=== PATIENT | female | born 2000 | race Caucasian/White ===

== ENCOUNTER 2020-01-26 08:08 | Emergency (ER) | payer OTHER, SELFPAY ==
--- NOTE | ~2020-01-26 | XR_ITS ---
EXAMINATION: XR elbow LT min 3V DATE: 01/26/2020 08:40 INDICATION: Left elbow pain TECHNIQUE: Anteroposterior, oblique, and lateral views of the left elbow were obtained. COMPARISON: None. FINDINGS: Alignment is normal. No fracture or joint effusion. Joint spaces are normal. There is anter ior soft tissue swelling of the elbow. IMPRESSION: 1. Soft tissue swelling without acute osseous abnormality. Reviewed, dictated and finalized at location A.
[2020-01-26 08:29] VITALS: BP 106/79; PULSE 71; RESP 16; TEMP 37.2; O2SAT 100
--- NOTE | 2020-01-26 08:36 | ED.UPPEXIN ---
HPI - Extremity Injury (Upper) General Chief Complaint: Extremity Injury, Upper Stated Complaint: Left arm fracture Time Seen by Provider: 01/26/20 08:36 Source: patient Mode of arrival: ambulatory Limitations: no limitations History of Present Illness HPI narrative: Katrin Erickson is a 19 yo female with no PMH who comes to express care with left elbow pain. Patient drove in the department last night but cannot remember the specifics of how she injured her left elbow. L Elbow swollen. 2/10 with no movement, 10/10 with movement. Related Data Home Medications Medication Instructions Recorded Confirmed norgestimate-ethinyl estradiol tablet 01/26/20 [Estarylla] Allergies Allergy/AdvReac Type Severity Reaction Status Date / Time No Known Allergies Allergy Unknown Unverified 05/10/19 19:27 No Known Allergies Allergy Uncoded 05/10/19 19:27 Review of Systems Review of Systems: Narrative: CONSTITUTIONAL: Denies fever, chills, sweats. EYES: Denies visual changes, redness, discharge. ENT: Denies rhinorrhea, congestion, sore throat, otalgia. CARDIOVASCULAR: Denies chest pain, palpitations, edema. RESPIRATORY: Denies dyspnea, wheezing, cough GASTROINTESTINAL: Denies abdominal pain, nausea, vomiting, diarrhea. GENITOURINARY: Denies dysuria, hematuria, abnormal discharge SKIN: Denies rash or itching. NEUROLOGIC: Denies numbness, or focal weakness. PSYCHIATRIC: Denies anxiety or depression. Extremities: Larm pain with pain with movement PMFSH Family History Family History Other No acute medical problems Social History Social History Smoking status: Never smoker Alcohol intake: never Comments At time of signature, I agree with nursing past medical, surgical, social and family history. There is no relevant family history pertinent to the presenting complaint. Exam Narrative: Exam Narrative: GENERAL: This is a well-nourished, well-developed patient, in moderate distress. HEAD: normocephalic, atraumatic. EYES: Sclera clear/white. Vision is grossly intact. EARS: External ears normal. Hearing grossly intact. NOSE: External nose normal without nasal discharge, nares without redness, no rhinorrhea. THROAT: Mucous membranes moist, NECK: Neck supple, CARDIOVASCULAR: Regular rate and rhythm without murmurs, gallops, or rubs. RESPIRATORY: Clear to auscultation. Breath sounds equal bilaterally. No wheezes, rales, or rhonchi. GASTROINTESTINAL: Abdomen soft, SKIN: warm, intact with no suspicious lesions or rash, good texture and turgor. NEURO: awake, alert, and oriented to person, place and time. There were no obvious focal neurologic abnormalities. Steady gait EXTREMITIES: Unable to extend left arm, no swelling distal olecranon, grasp left hand 3 out of 5, skin pink warm, no obvious abrasion BACK: Nontender without deformity Course Course Emergency Course: Given Toradol IM for pain Placed in sling/ directions on movement and use of ice [place] at discharge-if pain does not improve recommend CT follow-up for occult fracture, orthopedic referral given Consultations Consultation #1: Orthopedics-Dr Lemos Vital Signs Vital signs: Vital Signs Temperature 98.9 F 01/26/20 08:29 Pulse Rate 71 01/26/20 08:29 Respiratory Rate 16 01/26/20 08:29 Blood Pressure 106/79 01/26/20 08:29 Pulse Oximetry 100 01/26/20 08:29 Temperature 98.9 F 01/26/20 08:29 Pulse Rate 71 01/26/20 08:29 Respiratory Rate 16 01/26/20 08:29 Blood Pressure 106/79 01/26/20 08:29 Pulse Oximetry 100 01/26/20 08:29 MDM - Extremity Injury (Upper) Imaging Data Radiologist's impression: Soft tissue swelling without acute osseous abnormality Discharge Plan Discharge Clinical Impression: Elbow effusion Qualifiers: Laterality: left Qualified Code(s): M25.422 - Effusion, left elbow Patient Disposition:
[2020-01-26] MEDS: KETOROLAC (*BKC) 60 MG/2 ML VIAL IM (08:48)
== END 2020-01-26 09:19 | disposition home or self-care (01) ==
PROVIDERS: Emergency Provider Nurse Practitioner
DX: M25.422 Effusion, left elbow (principal)
CPT/HCPCS: 73080; 96372; 99213; A4565; G0463; J1885

== ENCOUNTER 2020-05-26 08:00 | Outpatient (RCR) | payer OTHER, SELFPAY ==
--- NOTE | 2020-03-05 11:26 | OTOPEVAL ---
OCCUPATIONAL THERAPY INITIAL EVALUATION 03/05/2020 Thank you for referring Katrin Erickson to [facility]. OT indicated 2x/week for 3 weeks for deficits described below. Please review, sign, date and return this plan of care RORY. I agree with and certify that the following plan of care is medically necessary. Referring Physician Date Referring Provider: Dr. Binh Donato *OT Outpatient Evaluation Therapy Assessment Status Assessment Status Assessment Status Evaluation Outpatient Past Medical History Musculoskeletal History Hx Fractures Yes: R wrist, L leg, toes and fingers Evaluation Information Problem Diagnosis Left radial head and capitellum fracture Onset Mid January 2020 (~5 weeks ago) Cause Diving in shallow water Subjective Information Patient reports sustaining the Query Text:As Reported By Patient/ left elbow injury after Family diving into a shallow pool. She went to the ER for evaluation the next day. 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 Functionally she was having difficulties touching/washing her face and doing her hair, but has recently been able to do this for herself. She is limited when it comes to any lifting, however. Pain Assessment Timing of Pain Assessment Timing of Pain Assessment Assessment Pain Scale Pain Scale Used Numeric (1 - 10) Self Report Pain Assessment Left Elbow(s) Reported Pain Level 0 Lowest Pain Intensity 0 Greatest Pain Intensity 4 Pain Score Pain Score 0: Self Report Upper Extremity Range of Motion Scapular/ Shoulder Range of Motion Left Reason Not Measured WNL/Left Elbow/Forearm Range of Motion Left Elbow Flexion - Active 95 Elbow Flexion - Passive 105 Elbow Extension - Active -60 Elbow Extension - Passive -40 Forearm Supination - Active 30 Forearm Supination - Passive 45 Forearm Pronation - Active 55 Forearm Pronation - Passive 70 Elbow/Forearm Range of Motion
--- NOTE | 2020-03-25 11:22 | PCOTNOTE ---
Patient missed appointment today - showed up at 11 instead of 10. Rescheduled for tomorrow.
--- NOTE | 2020-03-27 10:35 | OTOPEVAL ---
OCCUPATIONAL THERAPY RE-EVALUATION 03/27/2020 Thank you for referring Katrin Erickson to [facility].? The patient is scheduled to be seen for therapy? 2x/week for 4weeks. Please review, sign, date and return this plan of care RORY. I agree with and certify that the following plan of care is medically necessary. Referring Physician Date Referring Provider: Dr. Binh Donato *OT Outpatient Re-Evaluation Evaluation Information Problem Diagnosis Left radial head and capitellum fracture Onset Mid January 2020 Cause Diving in shallow water Additional Evaluation Detail Katrin has been participating in outpatient OT x3 weeks for left elbow stiffness. Therapy has been using heat, manual therapy, AROM/AAROM, and gentle PROM. She is currently independent with all of her exercises. Subjective Information Patient reports improved Query Text:As Reported By Patient/ functional use of her left UE Family since starting therapy. She states she is now able to use her left arm to wash her hair, don/doff a bra, tie shoes, swim, touch her face. Limitations include being able to turn her hand palm up to carry objects. Pain Assessment Timing of Pain Assessment Timing of Pain Assessment Re-assessment Pain Scale Pain Scale Used Numeric (1 - 10) Self Report Pain Assessment Left Elbow(s) Reported Pain Level 0 Lowest Pain Intensity 0 Greatest Pain Intensity 0 Pain Score Pain Score 0: Self Report Upper Extremity Range of Motion Scapular/ Shoulder Range of Motion Left Reason Not Measured WNL/Left Elbow/Forearm Range of Motion Left Elbow Flexion - Active 120 Elbow Flexion - Passive 125 Elbow Extension - Active -40 Elbow Extension - Passive -38 Forearm Supination - Active 60 Forearm Supination - Passive 65 Forearm Pronation - Active 60 Forearm Pronation - Passive 70 Elbow/Forearm Range of Motion Comments Active elbow flexion improved from 95* Passive elbow flexion improved from 105* Active elbow extension improved from -60* Passive elbow extension improved -40*
--- NOTE | 2020-04-28 08:07 | OTOPEVAL ---
OCCUPATIONAL THERAPY RE-EVALUATION REPORT 04/28/2020 Thank you for referring Katrin Erickson to [facility]. Patient is progressing with AROM and PROM of the left elbow.? The patient is scheduled to be seen for continued therapy? 2x/week for 4 weeks. Please review, sign, date and return this plan of care RORY. I agree with and certify that the following plan of care is medically necessary. Referring Physician Date Referring Provider: Dr. Binh Donato Re-valuation Information Problem Diagnosis Left radial head and capitellum fracture Onset Mid January 2020 Cause Diving in shallow water Additional Evaluation Detail Katrin has been participating in outpatient OT x6 weeks for left elbow stiffness. Therapy has been using heat, manual therapy, AROM/AAROM, and gentle PROM. She is currently independent with all of her exercises. Subjective Information Patient reports returning to Query Text:As Reported By Patient/ MD and they are ordering a Family brace to help push the elbow into more flexion and extension. She reports improved abilities to reach her hair/face/head, lift heavier objects, reach behind her back to don/doff a bra, and turn her palm up to carry objects. She reports feeling like her arm is 65% normal . Pain Assessment Timing of Pain Assessment Timing of Pain Assessment Assessment Pain Scale Pain Scale Used Numeric (1 - 10) Self Report Pain Assessment Left Elbow(s) Reported Pain Level 0 Lowest Pain Intensity 0 Greatest Pain Intensity 4 Pain Score Pain Score 0: Self Report Additional Pain Score Comments Patient reports no pain, except for when she's completing PROM exercises. She notes popping with PROM. Upper Extremity Range of Motion Scapular/ Shoulder Range of Motion Left Reason Not Measured WNL/Left Elbow/Forearm Range of Motion Left Elbow Flexion - Active 120 Elbow Flexion - Passive 123 Elbow Extension - Active -45 Elbow Extension - Passive -25 Forearm Supination - Active 70 Forearm Supination - Passive 80 Forearm Pronation - Active 65 Forearm Pronation - Passive 75 Elbow/Forearm Range of Motion Comments Elbow flexion AROM and PROM
--- NOTE | 2020-04-30 16:15 | PCOTNOTE ---
Patient did not show or call to cancel tx today. Called patient and she states she got her days mixed up . Was unable to reschedule this week due to being full.
--- NOTE | 2020-05-04 08:20 | PCOTNOTE ---
Patient did not show or call to cancel tx today. Called patient, no answer, unable to leave voicemail at this time. Patient has another OT tx this week on 05/07/2020.
--- NOTE | 2020-05-19 12:59 | PCOTNOTE ---
Patient called & cancelled scheduled appointment this date due to school.
--- NOTE | 2020-05-21 08:20 | PCOTNOTE ---
Pt no showed to 8am appointment, called pt, pt reports got confused on what time appointment was at and thought it was at a later time. Patient has appointment for tomorrow at 8:30am.
--- NOTE | 2020-05-26 08:35 | OTOPEVAL ---
OCCUPATIONAL THERAPY RE-EVALUATION: 05/26/2020 Thank you for referring Katrin Erickson to [facility].? The patient is scheduled to be seen for therapy?2 x/week for 4 weeks. Please review, sign, date and return this plan of care RORY. I agree with and certify that the following plan of care is medically necessary. Referring Physician Date Attending Provider: PHYSICIAN NOT ON STAFF *OT Outpatient Re-Evaluation Start: 03/05/20 10:32 Freq: Status: Active Protocol: Document 05/26/20 08:04 KJL (Rec: 05/26/20 08:34 KJL [id number]) Therapy Assessment Status Assessment Status Assessment Status Re-Evaluation Outpatient Past Medical History Musculoskeletal History Hx Fractures Yes: R wrist, L leg, toes and fingers Evaluation Information Problem Diagnosis Left radial head and capitellum fracture Onset Mid January 2020 Cause Diving in shallow water Additional Evaluation Detail Katrin has been participating in outpatient OT x11 weeks for left elbow stiffness. Therapy has been using heat, manual therapy, AROM/AAROM, PROM, dynamic splinting. She is currently independent with all of her exercises and wearing schedule including dof/donning splints independently. Subjective Information Patient reports feels like Query Text:As Reported By Patient/ splints are helping with Family improving flexion/extension of elbow. She reports improved abilities to braid hair, put shoe on opposite foot, play tennis. She reports feeling like her arm is 80% normal . Pain Assessment Timing of Pain Assessment Timing of Pain Assessment Assessment Pain Scale Pain Scale Used Numeric (1 - 10) Self Report Pain Assessment Left Elbow(s) Reported Pain Level 0 Greatest Pain Intensity 4 Pain Score Pain Score 0: Self Report Upper Extremity Range of Motion Scapular/ Shoulder Range of Motion Left Reason Not Measured WNL/Left Elbow/Forearm Range of Motion Left Elbow Flexion - Active 125 Elbow Flexion - Passive 125 Elbow Extension - Active -40 Elbow Extension - Passive -23 Forearm Supination - Active 75 Forearm Supination - Passive 85 Forearm Pronation - Active 70 Forearm Pronation - Passive 80 Elb
--- NOTE | 2020-05-29 15:47 | PCOTNOTE ---
This treatment is being continued on visit number [id number]. Please see documentation on both accounts to view progress. Completed interventions, outcomes, and problems have been marked as Inactive to facilitate the copying of the Care plan routine for recurring accounts.
== END 2020-05-29 13:03 | disposition home or self-care (01) ==
LOC: ANHOT 08:00
PROVIDERS: PCP Physician Assistant
DX: S52.122D Displaced fracture of head of left radius, subsequent encounter for closed fracture with routine healing (principal)
CPT/HCPCS: 97018; 97110; 97140; 97165; 97168; L3702; L3740

== ENCOUNTER 2020-07-31 12:30 | Outpatient (RCR) | payer OTHER, SELFPAY ==
--- NOTE | 2020-05-29 15:48 | PCOTNOTE ---
The treatment documented on this account is a continuation of the treatment documented on visit number [id number]. Please see documentation on both accounts to view progress. The Plan of Care has been transitioned and updated within the new V#. I have addressed and agree with the discipline specific Problems, Interventions, and Goals for the current certification period. Completed interventions, outcomes, and problems have been marked as Inactive to facilitate the copying of the Care plan routine for recurring accounts.
--- NOTE | 2020-06-01 08:18 | PCOTNOTE ---
Patient missed scheduled appointment today with no call. 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
--- NOTE | 2020-06-08 08:36 | PCOTNOTE ---
Patient missed 8:00 am treatment today due to thinking her appointment was at 8:30.
--- NOTE | 2020-06-15 08:21 | PCOTNOTE ---
Pt no showed and no called to appointment on this date, attempted to call patient with no answer.
--- NOTE | 2020-06-30 15:45 | OTOPEVAL ---
OCCUPATIONAL THERAPY RE-EVALUATION 06/30/2020 Thank you for referring Katrin Erickson to [facility].? The patient is scheduled to be seen for continued occupational therapy? 2x/week for 4 weeks. Please review, sign, date and return this plan of care RORY. I agree with and certify that the following plan of care is medically necessary. Referring Physician Date Referring Provider: Dr. Binh Donato *OT Outpatient Evaluation Diagnosis Left radial head and capitellum fracture Onset Mid January 2020 Cause Diving in shallow water Additional Evaluation Detail Katrin has been participating in outpatient OT x16 weeks for left elbow stiffness. Therapy has been using heat, manual therapy, AROM/AAROM, PROM, dynamic splinting. She is currently independent with all of her exercises and wearing schedule including dof/donning splints independently. Subjective Information Patient reports that she is Query Text:As Reported By Patient/ stuck regarding getting more Family strength and flexibility. She reports the splints are continue to help push her arm and that the extension splint actually is now too loose and needs to be remolded as she can extend farther than the brace. Functionally she is now able to wash her back using the left arm. She reports feeling like her arm is 75% normal . Pain Assessment Timing of Pain Assessment Timing of Pain Assessment Re-assessment Pain Scale Pain Scale Used Numeric (1 - 10) Self Report Pain Assessment Left Elbow(s) Reported Pain Level 0 Lowest Pain Intensity 0 Greatest Pain Intensity 7 Other Pain Aggravating Factors Pushing her arm during PROM and exercises. Pain Score Pain Score 0: Self Report Upper Extremity Range of Motion Scapular/ Shoulder Range of Motion Left Reason Not Measured WNL/Left Elbow/Forearm Range of Motion Left Elbow Flexion - Active 130 Elbow Flexion - Passive 135 Elbow Extension - Active -35 Elbow Extension - Passive -20 Forearm Supination - Active 75 Forearm Pronation - Active 75 Elbow/Forearm Range of Motion Comments Pain rated at 4/10 with PROM.
--- NOTE | 2020-07-31 13:09 | OTOPEVAL ---
OCCUPATIONAL THERAPY RE-EVALUATION AND DISCHARGE SUMMARY 07/31/2020 Jack presents today for her 5th re-evaluation since beginning therapy on 03/05/20. At this time her elbow ROM has reached a progress plateau. Functional strength is WNL and she is independent with all home exercises. She is beginning to have new pain, located at the medial elbow/distal humerus. It is recommended that she follows up with MD for further treatment recommendations - if any. Discharging with patient independent with all materials. Thank you for referring Katrin Erickson to [facility]. Please review, sign, date and return this D/C Note RORY. I agree with and certify that the following plan of care is medically necessary. Referring Physician Date Referring Provider: Dr. Binh Donato *OT Outpatient Evaluation Start: 06/04/20 08:31 Freq: Status: Active Protocol: Document 07/31/20 12:33 CALVIN (Rec: 07/31/20 13:04 CALVIN [id number]) Therapy Assessment Status Assessment Status Assessment Status Discharge Outpatient Past Medical History Musculoskeletal History Hx Fractures Yes: R wrist, L leg, toes and fingers Evaluation Information Problem Diagnosis Left radial head and capitellum fracture Onset Mid-January 2020 Additional Evaluation Detail Katrin has been participating in outpatient OT x20 weeks for left elbow stiffness. Therapy has been using heat, manual therapy, AROM/AAROM, PROM, and dynamic splinting. She is currently independent with all of her exercises and wearing schedule including dof/donning splints independently. Subjective Information Patient reports that she feels Query Text:As Reported By Patient/ a lot more crunching / Family grinding / popping lately in the elbow and is concerned about this. She states ROM feels stuck regarding elbow flexion and extension. She reports being able to workout and lift weights at the gym to continue to build strength and this has gotten easier. She reports feeling like her arm is 85% normal . Pain Assessment Timing of Pain Assessment Timing of Pain Assessment Re-assessment Pain Scale Pain Scale Used Numeric (1 - 10) Self Report Pain Assessment Left Elbow(s) Reported Pain Level 0 Lowest Pain Intensity 0
--- NOTE | 2020-09-08 15:45 | PCOTNOTE ---
Incorrect charges and changes for the followin/6 - Should only be 2 units of exercise with paraffin charge added 07/03 - Should only be 1 unit of exercise with paraffin charge added Billing dept are aware of these changes.
== END 2020-08-12 15:17 | disposition home or self-care (01) ==
LOC: ANHOT 12:30
PROVIDERS: PCP Physician Assistant
DX: S52.122D Displaced fracture of head of left radius, subsequent encounter for closed fracture with routine healing (principal)
CPT/HCPCS: 97018; 97110; 97140; 97763

== ENCOUNTER 2020-11-26 10:00 | Outpatient (RCR) | payer OTHER, SELFPAY ==
--- NOTE | 2020-09-01 09:41 | OTOPEVAL ---
OCCUPATIONAL THERAPY EVALUATION REPORT 09/01/2020 Thank you for referring Katrin Erickson to [facility].? The patient is scheduled to be seen for therapy? 1x/week for 6 weeks. Please review, sign, date and return this plan of care RORY. I agree with and certify that the following plan of care is medically necessary. Referring Physician Date Attending Provider: Dr. Binh Donato Referring Provider: LUL Egan *OT Outpatient Evaluation Therapy Assessment Status Assessment Status Assessment Status Evaluation Outpatient Past Medical History Past Medical History Source of Past Medical History Patient Neurological History Hx Neurological Disorders No Significant History Cardiovascular History Hx Cardiac Disorders No Significant History Respiratory History Hx Respiratory Disorders No Significant History Gastrointestinal History Hx Gastrointestinal Disorders No Significant History Genitourinary History Hx Genitourinary Disorders No Significant History Musculoskeletal History Hx Fractures Yes: L wrist, R leg, toes and fingers Hematological History Hx Hematological Disorders No Significant History Endocrine History Hx Endocrine Disorders No Significant History HEENT History Hx HEENT Disorders No Significant History Integumentary History Hx Skin Disorders No Significant History Reproductive History Hx Reproductive Disorders No Significant History Psychosocial History Hx Psychiatric Disorders No Significant History Evaluation Information Problem Diagnosis Left radial head and capitellum fracture Onset Mid-January 2020 Cause Diving into a shallow pool Subjective Information Patient reports she returned Query Text:As Reported By Patient/ to the orthopedic MD on 08/05/20 Family and he prescribed her Gabapentin for nerve pain and recommended that she return for therapy 1x/week for 2 months, then to follow up with MD after another 2 months of therapy. She states that she continues to have a lot of popping in the elbow with movement and use. She reports that her biggest limitation is stiffness and pain with the cold weather. She also notes shaking when trying to use the left UE due to weakness. Pain Assessment Timing of Pain Assessment Timing of Pain Assessment Assessment Pain Scale Pain Scale Used Numeric (1 - 10) Self Repo
--- NOTE | 2020-10-15 15:55 | OTOPEVAL ---
OCCUPATIONAL THERAPY RE-EVALUATION REPORT 10/15/20 Thank you for referring Katrin Erickson to [facility].? The patient is scheduled to be seen for continued occupational therapy? 1x/week for 6 weeks. Please review, sign, date and return this plan of care RORY. I agree with and certify that the following plan of care is medically necessary. Referring Physician Date Referring Provider: Dr. Binh Donato *OT Outpatient Re-Evaluation Evaluation Information Problem Diagnosis Left radial head and capitellum fracture Onset Mid-January 2020 Cause Diving into a shallow pool Subjective Information Patient reports improvements Query Text:As Reported By Patient/ with the left elbow over the Family past 6 weeks. She notes improvements with ROM and strength stating that he arm no longer shakes when using the arm to work out, carry objects, and lift. She states her arm is about 85% normal . Continues to have popping in the elbow. Reports intermittent nerve pain with working out. Pain Assessment Timing of Pain Assessment Timing of Pain Assessment Re-assessment Pain Scale Pain Scale Used Numeric (1 - 10) Self Report Pain Assessment Left Elbow(s) Reported Pain Level 2 Pain Description Aching,Soreness Radicular Pain Location Lateral forearm, along the entire radius Lowest Pain Intensity 0 Greatest Pain Intensity 6 Other Pain Aggravating Factors Working out, lifting weights Pain Score Pain Score 2: Self Report Interventions Used Interventions Used By Clinicians Education Upper Extremity Range of Motion Scapular/ Shoulder Range of Motion Left Reason Not Measured WNL/Left Elbow/Forearm Range of Motion Left Elbow Flexion - Active 138 Elbow Extension - Active -30 Forearm Supination - Active 80 Forearm Pronation - Active 80 Elbow/Forearm Range of Motion Comments Elbow flexion improved from 130* Elbow extension improved from -40 Pronation and supination remained WFL at 80* each Static progressive splinting has been progressed every other week. Wrist Range of Motion Left Reason Not Measured WNL/Left Upper Extremity Muscle Strength Testing Elbow/Fore
--- NOTE | 2020-11-26 10:39 | OTOPEVAL ---
OCCUPATIONAL THERAPY RE-EVALUATION AND DISCHARGE SUMMARY Katrin has made excellent progress over the past 12 weeks of therapy. Her ROM and strength are well within functional limits, measuring symmetrical to the right elbow with flexion, pronation, and supination. She is very motivated to continue to work towards greater degrees of extension and at this time she has all the tools and exercises to do so. At this time, it is recommended that she is discharged from therapy with independence with static splinting and strengthening. She plans to follow up with MD for further recommendations as needed. Thank you for referring Katrin Erickson to [facility] [place]. Please review, sign, date and return this D/C Note RORY. I agree with and certify that the following plan of care is medically necessary. Referring Physician Date Referring Provider: Dr. Binh Donato *OT Outpatient Evaluation Evaluation Information Problem Diagnosis Left radial head and capitellum fracture Onset Mid January 2020 Additional Evaluation Detail Katrin has been participating in outpatient OT 1x/week for 12 weeks. Treatments have been focused on static progressive splinting for elbow ROM, treatment of pain and stiffness, progressive strengthening. At this time, the static extension splint has been remolded to 0* extension. The static flexion splint allows for 140* of flexion. She has also been stretching, lifting, and strengthening at the gym. Subjective Information Patient reports improvements Query Text:As Reported By Patient/ with the left elbow over the Family past 6 weeks. She states that the numbness has subsided and she no longer has nerve pain . She states she has been increasing her weight when working out and that she has been getting stronger. She does note painful popping / crunching with elbow extension. Pain Assessment Timing of Pain Assessment Timing of Pain Assessment Re-assessment Pain Scale Pain Scale Used Numeric (1 - 10) Self Report Pain Assessment Left Elbow(s) Reported Pain Level 0 Lowest Pain Intensity 0 Greatest Pain Intensity 7 Pain Score Pain Score 0: Self Report Additional Pain Score Comments No pain at rest or with gentle
== END 2020-11-27 11:33 | disposition home or self-care (01) ==
LOC: ANHOT 10:00
PROVIDERS: PCP Physician Assistant
DX: S52.122D Displaced fracture of head of left radius, subsequent encounter for closed fracture with routine healing (principal)
CPT/HCPCS: 97018; 97110; 97140; 97165; 97763

== ENCOUNTER 2021-01-28 11:01 | Emergency (ER) | payer OTHER, SELFPAY ==
[2021-01-28 11:15] VITALS: BP 140/88; PULSE 123; RESP 16; TEMP 39.3; O2SAT 100
[2021-01-28 11:28] VITALS: TEMP 39.3
[2021-01-28] MEDS: IBUPROFEN 400 MG TABLET PO (11:28)
--- NOTE | 2021-01-28 11:34 | ED.FEMALEGU ---
HPI - Female Genitourinary General Chief complaint: Urogenital-Female Stated complaint: Nausea,Back pain, head pain Time Seen by Provider: 01/28/21 11:30 Source: patient Mode of arrival: ambulatory Limitations: no limitations History of Present Illness HPI Narrative: Katrin Erickson is a 20 yo female with no PMH who comes to [facility] with lower right back pain, fever, some burning and dysuria that started last night, vomited x2 during night, ate sandwich and liquids at 5 AM, now feeling shaky and pain in lower back is rated as 6 out of 10, fever 102.8 , tachycardic, BP ,O2 sats stable Related Data Home Medications Medication Instructions Recorded Confirmed norgestimate-ethinyl estradiol 1 tablet PO DAILY 01/28/21 01/28/21 [Estarylla] Allergies Allergy/AdvReac Type Severity Reaction Status Date / Time No Known Allergies Allergy Unknown Verified 01/28/21 11:29 Review of Systems Review of Systems: Narrative: CONSTITUTIONAL: Has fever, chills, sweats. EYES: Denies visual changes, redness, discharge. ENT: Denies rhinorrhea, congestion, sore throat, otalgia. CARDIOVASCULAR: Denies chest pain, palpitations, edema. RESPIRATORY: Denies dyspnea, wheezing, cough GASTROINTESTINAL: Denies abdominal pain, nausea, vomiting, diarrhea. GENITOURINARY: has dysuria, no hematuria, abnormal discharge, Has R lower pain SKIN: Denies rash or itching. NEUROLOGIC: Denies numbness, or focal weakness. PSYCHIATRIC: Denies anxiety or depression. [facility] Past Medical History Medical History UTI (urinary tract infection) Family History Family History Other No acute medical problems Social History Social History Smoking status: Current every day smoker Alcohol intake: never Comments At time of signature, I agree with nursing past medical, surgical, social and family history. There is no relevant family history pertinent to the presenting complaint. Exam Narrative: Exam Narrative: GENERAL: This is a well-nourished, well-developed patient, in moderate distress. Feverish, shaking HEAD: normocephalic, atraumatic. EYES: Sclera clear/white. Vision is grossly intact. EARS: External ears normal, Hearing grossly intact. NOSE: External nose normal without nasal discharge, nares without redness, no rhinorrhea. THROAT: Mucous membranes moist, NECK: Neck supple, non-tender CARDIOVASCULAR: Tachycardic rate and rhythm without murmurs, gallops, or rubs. RESPIRATORY: Clear to auscultation. Breath sounds equal bilaterally. No wheezes, rales, or rhonchi. GASTROINTESTINAL: Abdomen soft, non-tender, R CVA tenderness SKIN: warm, intact with no suspicious lesions or rash, good texture and turgor. NEURO: awake, alert, and oriented to person, place and time. There were no obvious focal neurologic abnormalities. Steady gait EXTREMITIES: Normal range of motion. BACK: Nontender without deformity Course Course Emergency Course: Patient presents with complaints of right lower back pain that started last night, was able to eat at 5:00 this morning, still has right lower back pain and has ketones in urine- Given Motrin p.o. UA shows 1+ ketones trace blood trace leukocytes Attempted IV but patient not relax and dehydrated so we will send to [facility] for further evaluation and IV fluids Spoke with Dr. Benjamin for for discussion on patient, physician accepted transfer to [facility] Vital Signs Vital signs: Vital Signs Temperature 102.8 F H 01/28/21 11:15 Pulse Rate 123 H 01/28/21 11:15 Respiratory Rate 16 01/28/21 11:15 Blood Pressure 140/88 01/28/21 11:15 Pulse Oximetry 100 01/28/21 11:15 Temperature 102.8 F H 01/28/21 11:28 Pulse Rate 123 H 01/28/21 11:15 Respiratory Rate 16 01/28/21 11:15 Blood Pressure 140/88 01/28/21 11:15 Pulse Oximetry 100
--- NOTE | 2021-01-28 12:09 | PC.NURSE ---
1155-Unable to get IV access. Attempt x 2.
--- NOTE | 2021-01-28 12:13 | PC.NURSE ---
1128-Pt feeling shaky and hot. Pt given cool wet washcloth for forehead. Will continue to monitor pt.
--- NOTE | 2021-01-28 12:14 | PC.NURSE ---
1140-Pt moved to Rm 1.
== END 2021-01-28 11:59 | disposition short-term general hospital (02) ==
PROVIDERS: Emergency Provider Nurse Practitioner
DX: N30.01 Acute cystitis with hematuria (principal)
CPT/HCPCS: 81003; 99212; A9270; G0463

== ENCOUNTER 2021-01-28 12:10 | Emergency (ER) | payer OTHER, SELFPAY ==
--- NOTE | ~2021-01-28 | CT_ITS ---
EXAMINATION: CT abdomen pelvis wo con EXAM DATE: 01/28/2021 14:05 INDICATION: Left flank pain and fever . TECHNIQUE: Spiral CT of the abdomen and pelvis was performed without contrast. Axial, coronal and sag ittal images were reviewed. The dose-length product (DLP) for this examination was 317.99 mGy-cm. T he exposure was tailored according to patient size (auto mA exposure control), and iterative reconstr uction (ASIR) was used as additional dose reduction technique. There is no prior study for compariso n. FINDINGS: There is no nephrolithiasis or hydronephrosis. The uterus is anteverted and morphological ly normal. The bladder is unremarkable. The liver, spleen, adrenal glands and pancreas are unremar kable. Ovaries are normal in size. Gallbladder is unremarkable. No biliary obstruction. There is no retroperitoneal or pelvic lymphadenopathy. The appendix is normal. The stomach and small bowel are unremarkable. There is moderate amount of c olonic stool. No free intraperitoneal gas. The heart is normal in size. There are no pericardial or pleural effusions. The lung bases are unremarkable. The bones are unremarkable. IMPRESSION: 1. No nephrolithiasis, hydronephrosis or acute intra-abdominal findings. 2. Moderate amount of colonic stool and gas. Reviewed, dictated and finalized at location B.
[2021-01-28 12:15] VITALS: BP 124/81; PULSE 98; RESP 16; TEMP 37; O2SAT 100
--- NOTE | 2021-01-28 12:17 | ED.ABDPAIN ---
HPI - Abdominal Pain General Chief Complaint: Abdominal Pain Stated Complaint: low back pain/nausea Time Seen by Provider: 01/28/21 12:16 History of Present Illness HPI narrative: Sharp right low back pain since yesterday afternoon. Right CVA pain. Moderate severity. Associated with nausea, vomiting, and fever of 102. She has mild dysuria and urinary urgency when her pain is more severe as well. Seen at urgent care and had urine dip showing trace leukocyte esterase. Sent here for further evaluation. Fever broke with ibuprofen and she is feeling better. She has never had these symptoms before. Related Data Home Medications Medication Instructions Recorded Confirmed norgestimate-ethinyl estradiol 1 tablet PO DAILY 01/28/21 01/28/21 [Estarylla] Allergies Allergy/AdvReac Type Severity Reaction Status Date / Time No Known Allergies Allergy Unknown Verified 01/28/21 11:29 Review of Systems Review of Systems: All systems reviewed & are unremarkable except as noted in HPI and below Constitutional: Constitutional: Reports chills and Reports fever(s) Eyes: Eyes: Reports no additional eye complaints ENT: Denies sore throat Cardiovascular: Cardiovascular: Reports chest pain (occasional, mild) and Denies radiating jaw, neck or arm pain Respiratory: Respiratory: Reports dyspnea Gastrointestinal: Gastrointestinal: Denies abdominal pain, Denies constipation, Denies diarrhea, Reports nausea and Reports vomiting Genitourinary: Genitourinary: Denies hematuria, Reports dysuria and Reports flank pain PMFSH Past Medical History Medical History UTI (urinary tract infection) Family History Family History Other No acute medical problems Social History Social History Smoking status: Current every day smoker Alcohol intake: never Exam Const: General: healthy appearing, no acute distress and alert Orientation/consciousness: patient oriented x3 HENMT: Head: normal to inspection Neck: Neck: normal visual inspection and no lymphadenopathy Chest: Chest palpation & inspection: no tenderness Resp: Effort & Inspection: normal respiratory effort Auscultation: clear to auscultation bilaterally, no rales, no rhonchi and no wheezes Cardio: Jugular venous distension: no JVD Rate: regular rate Rhythm: regular rhythm Heart sounds: no murmurs GI: Inspection: non-distended GI Palp: Yes Soft to palpation and No Tenderness to palpation present (GI) : General: Yes CVA tenderness on the right Skin: General skin exam: normal color Neuro: General: patient oriented x3 and moves all extremities Speech: normal speech Extrem: General: no edema Psych: Appearance: well kempt Affect: normal affect Course Vital Signs Vital signs: Vital Signs Temperature 37.0 C 01/28/21 12:15 Pulse Rate 98 01/28/21 12:15 Respiratory Rate 16 01/28/21 12:15 Blood Pressure 124/81 01/28/21 12:15 Pulse Oximetry 100 01/28/21 12:15 Temperature 37.0 C 01/28/21 12:15 Pulse Rate 98 01/28/21 12:15 Respiratory Rate 16 01/28/21 12:15 Blood Pressure 124/81 01/28/21 12:15 Pulse Oximetry 100 01/28/21 12:15 MDM - Abdominal Pain Differential Diagnosis Differential diagnosis: Likely acute appendicitis, calculus of kidney, pancreatitis and other (pyelonephritis) Medical Records Attestation: I reviewed the patient's medical records. Lab Data Attestation: I reviewed the patient's lab results. Result diagrams: 01/28/21 12:22 01/28/21 12:22 Labs: Lab Results 01/28/21 01/28/21 01/28/21 Range/Units 12:22 12:22 12:22 WBC 10.9 H (4.5-10.0) K/mm3 RBC 4.38 (4.2-5.4) M/mm3 Hgb 12.4 (12.0-15.0) g/dL Hct 37.5 (37.0-47.0) % MCV 85.6 (80-100) fl MCH 28.3 (26-34) pg MCHC 33.1 (32-36)
[2021-01-28 12:29] LABS: Basophils Percent Auto 0.2 % (0.2-1.2); Hematocrit 37.5 % (37.0-47.0); Hemoglobin 12.4 g/dL (12.0-15.0); Immature Granulocyte Absolute 0.08 K/mm3 (0.00-0.031); Immature Granulocyte Percent A 0.7 % (0-0.5); Lymphocytes Absolute Auto 0.63 K/mm3 (0.9-3.2); Lymphocytes Percent Auto 5.8 % (18.3-44.2); Mean Corpuscular HGB Conc 33.1 g/dl (32-36); Mean Corpuscular Hemoglobin 28.3 pg (26-34); Mean Corpuscular Volume 85.6 fl (80-100); Mean Platelet Volume 9.9 fl (7.4-10.4); Monocytes Absolute Auto 0.7 K/mm3 (0.1-0.6); Monocytes Percent Auto 6.4 % (2.6-8.5); Neutrophils Absolute Auto 9.4 K/mm3 (1.3-6.7); Neutrophils Percent Auto 86.9 % (45.5-73.1); Platelet Count Result 229 k/mm3 (150-375); Red Blood Count 4.38 M/mm3 (4.2-5.4); Red Cell Distribution Width 12.8 % (11.5-14.5); White Blood Count 10.9 K/mm3 (4.5-10.0)
[2021-01-28 12:39] LABS: Anion Gap 10 mmol/L (8-16); Blood Urea Nitrogen 10 mg/dL (7-17); Calcium 9.5 mg/dL (8.4-10.2); Carbon Dioxide 24 mmol/L (22-30); Chloride 101 mmol/L (98-107); Estimated CRCL calculation 95 ml/min; Estimated Glomerular Filt Rate > 60; Glucose 133 mg/dL (65-105); Potassium 3.7 mmol/L (3.4-5.0); Sodium 135 mmol/L (137-145)
[2021-01-28 12:52] LABS: Alanine Aminotransferase 20 U/L (4-35); Albumin Level 4.3 g/dL (3.5-5.1); Alkaline Phosphatase 65 U/L (38-126); Aspartate Amino Transferase 29 U/L (14-36); Bilirubin,Total 1.1 mg/dL (0.2-1.3); Lipase 43 U/L (23-300)
[2021-01-28 13:13] LABS: Add Urine Microscopic? YES; Appearance Urine Cloudy (Clear); Bacteria Urine Trace /hpf; Bilirubin Urine Negative (Negative); Blood Urine 1+ (Negative); Color Urine Yellow (Yellow); Glucose Urine UA Negative (Negative); Ketones Urine Negative (Negative); Leukocyte Esterase Ur 1+ LEU/UL (Negative); Mucus Urine Rare /lpf; Nitrate Urine Negative (Negative); Protein Urine 2+ mg/dL (Negative); Specific Grav Ur 1.021 (1.001-1.035); Squamous Epithelial Cell Urine Many /hpf (Few); WBC Urine 21-30 /hpf
[2021-01-28 15:01] VITALS: BP 116/66; PULSE 96; RESP 17; O2SAT 100
== END 2021-01-28 15:03 | disposition home or self-care (01) ==
PROVIDERS: Emergency Provider Emergency Medicine
DX: N12 Tubulo-interstitial nephritis, not specified as acute or chronic (principal); Z87.440 Personal history of urinary (tract) infections; F17.200 Nicotine dependence, unspecified, uncomplicated
CPT/HCPCS: 36415; 74176; 80048; 80076; 81001; 81003; 81025; 83690; 85025; 87077; 87086; 87088; 87186; 96365; 96367; 99284; A9270; J0131; J0696

== ENCOUNTER 2021-04-07 11:43 | Emergency (ER) | payer OTHER, SELFPAY ==
[2021-04-07 11:51] VITALS: BP 112/70; PULSE 89; RESP 18; TEMP 36.6; O2SAT 100
--- NOTE | 2021-04-07 11:52 | ED.WOUNDLAC ---
HPI - Wound/Laceration General Chief Complaint: Wound/Laceration Stated Complaint: spider bite Time Seen by Provider: 04/07/21 11:55 Source: patient and RN notes reviewed Mode of arrival: ambulatory Limitations: no limitations History of Present Illness HPI narrative: 20-year-old female presents concern for possible spider bite. Reports a scab on her left upper anterior leg that has been there for approximately 4 days. She reports it started as a small itchy pustule that opened and is now a slightly larger scabbed area. She denies current itching, pain. Reports slight warmth and tenderness to touch. She denies any subsequent drainage. Denies any other similar areas on her body, denies fever, body aches, chills sweats. Related Data Home Medications Medication Instructions Recorded Confirmed norgestimate-ethinyl estradiol 1 tablet PO DAILY 01/28/21 01/28/21 [Estarylla] Allergies Allergy/AdvReac Type Severity Reaction Status Date / Time No Known Allergies Allergy Unknown Verified 04/07/21 11:44 Review of Systems Review of Systems: CONSTITUTIONAL: Denies malaise, chills, sweats, or fever. ENT: Denies swollen lips, swollen tongue CARDIOVASCULAR: Denies chest pain, palpitations, or edema. RESPIRATORY: Denies cough or dyspnea. SKIN: Reports possible spider bite on her left leg MUSCULOSKELETAL: Denies myalgia. All systems reviewed & are unremarkable except as noted in HPI and below PMFSH Past Medical History Medical History UTI (urinary tract infection) Family History Family History Other No acute medical problems Social History Social History Smoking status: Current every day smoker Alcohol intake: never Comments At time of signature, agree with nursing past medical, surgical, social and family history. There is no relevant family history pertinent to the presenting complaint Exam Narrative: GENERAL: Well-appearing, well-nourished, and in no acute distress. HEAD: Normocephalic, atraumatic. EYES: PERRLA, conjunctivae clear, and EOMI. ENT: Mucous membranes moist. NECK: Supple. No lymphadenopathy CHEST: Clear to auscultation. No respiratory distress. HEART: Regular rate and rhythm. SKIN: Warm, dry. 1.5 cm scabbed area with mild surrounding erythema noted to the left anterior upper thigh, no surrounding induration, edema, no fluctuation or nodule noted, no drainage NEURO: Alert and oriented x3. PSYCH: Normal mood and affect Course Course Emergency Course: Patient is aware of diagnosis, understands and agrees to treatment plan. Anticipatory guidance given. Patient agrees to follow-up as directed and is aware of reasons to seek care at the emergency department. Portions of this record may have been created with voice recognition software Vital Signs Vital signs: Vital Signs Temperature 97.8 F 04/07/21 11:51 Pulse Rate 89 04/07/21 11:51 Respiratory Rate 18 04/07/21 11:51 Blood Pressure 112/70 04/07/21 11:51 Pulse Oximetry 100 04/07/21 11:51 Temperature 97.8 F 04/07/21 11:51 Pulse Rate 89 04/07/21 11:51 Respiratory Rate 18 04/07/21 11:51 Blood Pressure 112/70 04/07/21 11:51 Pulse Oximetry 100 04/07/21 11:51 Reviewed. MDM - Wound/Laceration MDM Narrative Medical decision making narrative: Exam findings show no acute concerns or changes; patient is non-toxic appearing and is in no distress. Patient is appropriate for outpatient treatment and follow-up. Differential Diagnosis Differential diagnosis: Likely abscess, abrasion, avulsion of skin and other (Folliculitis, insect bite, cellulitis) Critical Care Time Critical Care Time Critical Care Time: No Discharge Plan Discharge Clinical Impression: Healing wound Patient Disposition: Home, Self-Care Condition: Stable Instructi
== END 2021-04-07 12:03 | disposition home or self-care (01) ==
PROVIDERS: Emergency Provider Nurse Practitioner; PCP Physician Assistant
DX: S71.102A Unspecified open wound, left thigh, initial encounter (principal); X58.XXXA Exposure to other specified factors, initial encounter; F17.210 Nicotine dependence, cigarettes, uncomplicated
CPT/HCPCS: 99211; G0463

== ENCOUNTER 2021-07-05 14:45 | Emergency (ER) | payer OTHER, SELFPAY ==
[2021-07-05 14:48] VITALS: BP 143/91; PULSE 79; RESP 16; TEMP 36.6; O2SAT 99
--- NOTE | 2021-07-05 15:12 | ED.GENADULT ---
HPI - General Adult General Chief complaint: Dental/Oral Stated complaint: Medication reaction. Time Seen by Provider: 07/05/21 14:55 Source: patient Mode of arrival: ambulatory Limitations: no limitations History of Present Illness HPI narrative: Patient 20-year-old female presented with chief complaint of sores to her mouth that she noticed after taking Augmentin for dental infection. Patient reports that the sores are in the inner aspect of her lower lip. She reports they are painful. Patient believes that they were caused by the Augmentin prescription. Patient denies fever, chills, nausea, vomiting, trouble breathing or swallowing or any other airway symptoms. Related Data Home Medications Medication Instructions Recorded Confirmed norgestimate-ethinyl estradiol 1 tablet PO DAILY 01/28/21 01/28/21 [Estarylla] amoxicillin-pot clavulanate tablet 07/05/21 07/05/21 Allergies Allergy/AdvReac Type Severity Reaction Status Date / Time No Known Allergies Allergy Unknown Verified 04/07/21 11:44 Review of Systems Review of Systems: CONSTITUTIONAL: Denies fever, chills, or sweats. EYES: Denies visual changes, redness, or discharge. ENT: Denies rhinorrhea, congestion, sore throat, or otalgia. CARDIOVASCULAR: Denies chest pain, palpitations, or edema. RESPIRATORY: Denies cough or dyspnea. GASTROINTESTINAL: Denies abdominal pain, nausea, vomiting, or diarrhea. GENITOURINARY: Denies dysuria or hematuria. SKIN: Reports rash denies itching. MUSCULOSKELETAL: Denies back pain, joint pain, or myalgia. NEUROLOGIC: Denies headache, numbness, dizziness, or weakness. PSYCHIATRIC: Denies anxiety or depression. PMFSH Past Medical History Medical History UTI (urinary tract infection) Family History Family History Other No acute medical problems Social History Social History Smoking status: Current every day smoker Alcohol intake: never Exam Narrative: GENERAL: Well-appearing, well-nourished, and in no acute distress. HEAD: Normocephalic, atraumatic. EYES: PERRLA and EOMI. ENT: Nares clear, no rhinorrhea or epistaxis. Mucous membranes moist. Oropharynx without tonsillar hypertrophy exudate. Herpetic lesions to lower inner lip. Bilateral TMs pearly richardson nonbulging CHEST: Clear to auscultation. No respiratory distress. No wheezes rales or rhonchi HEART: Regular rate and rhythm. No murmur heard. Normal peripheral pulses. EXTREMITIES: Normal range of motion. No edema. SKIN: Warm, dry, no rash. NEURO: No focal deficits. Alert and oriented x3. PSYCH: Normal mood and affect. Course Vital Signs Vital signs: Vital Signs Temperature 97.8 F 07/05/21 14:48 Pulse Rate 79 07/05/21 14:48 Respiratory Rate 16 07/05/21 14:48 Blood Pressure 143/91 H 07/05/21 14:48 Pulse Oximetry 99 07/05/21 14:48 Temperature 97.8 F 07/05/21 14:48 Pulse Rate 72 07/05/21 16:01 Respiratory Rate 16 07/05/21 16:01 Blood Pressure 118/75 07/05/21 16:01 Pulse Oximetry 100 07/05/21 16:01 Medical Decision Making MDM Narrative Medical decision making narrative: I believe the lesions of the patient is concerned about or herpetic in nature and not allergic. Patient is adamant that she feels they are due to the Augmentin so we will switch her to clindamycin for her tooth infection. Patient will be prescribed Magic mouthwash. Patient instructed to follow-up with primary care if symptoms persist. Vital Signs Vital Signs: Vital Signs Temperature 97.8 F 07/05/21 14:48 Pulse Rate 79 07/05/21 14:48 Respiratory Rate 16 07/05/21 14:48 Blood Pressure 143/91 H 07/05/21 14:48 Pulse Oximetry 99 07/05/21 14:48 Temperature 97.8 F 07/05/21 14:48 Pulse Rate 72 07/05/21 16:01 Respiratory Rate 16 07/05/21 16:01 Blood Pressure 118/7
[2021-07-05 16:01] VITALS: BP 118/75; PULSE 72; RESP 16; O2SAT 100
== END 2021-07-05 16:01 | disposition home or self-care (01) ==
PROVIDERS: Emergency Provider Emergency Medicine; PCP Physician Assistant
DX: B00.9 Herpesviral infection, unspecified (principal); K08.89 Other specified disorders of teeth and supporting structures; F17.210 Nicotine dependence, cigarettes, uncomplicated
CPT/HCPCS: 99283

== ENCOUNTER 2022-11-07 09:06 | Emergency (ER) | payer OTHER, SELFPAY ==
[2022-11-07 09:17] VITALS: BP 119/62; PULSE 80; RESP 14; TEMP 36.8; O2SAT 100
--- NOTE | 2022-11-07 09:28 | ED.URI ---
HPI - URI/Sore Throat General Chief Complaint: Upper Respiratory Infection Stated Complaint: Sore Throat Time Seen by Provider: 11/07/22 09:28 History of Present Illness HPI Narrative: 22-year-old female presented for complaint of runny nose, mild cough and sore throat this morning. She denies sick contacts. Has not taken anything for symptoms. He denies shortness breath, wheezing, headache, nausea, vomiting, diarrhea, fevers or chills. Related Data Home Medications Medication Instructions Recorded Confirmed No Home Medications 11/07/22 11/07/22 Allergies Allergy/AdvReac Type Severity Reaction Status Date / Time amoxicillin [From Amoxil] Allergy Other Verified 11/07/22 09:24 Review of Systems Review of Systems: CONSTITUTIONAL: Denies body aches, fever, chills, or sweats. EYES: Denies visual changes, redness, or discharge. ENT: Per HPI CARDIOVASCULAR: Denies chest pain, palpitations, or edema. RESPIRATORY: Denies dyspnea. GASTROINTESTINAL: Denies abdominal pain, nausea, vomiting, or diarrhea. SKIN: Denies rash, itching, or wounds. MUSCULOSKELETAL: Denies back pain, joint pain, or myalgia. NEUROLOGIC: Denies headache PMFSH Past Medical History Medical History UTI (urinary tract infection) Family History Family History Other No acute medical problems Social History Social History Smoking status: Current every day smoker Alcohol intake: never Exam Narrative: GENERAL: well-appearing, no acute distress. EYES: conjunctivae clear ENT: Mucous membranes moist. TM pearly richardson with normal light reflex bilaterally; no tragal tenderness. Oropharynx erythematous without lesions. Tonsils not enlarged and without exudate. No drooling, no hoarseness, no trismus, uvula midline. No tripod positioning, hot potato voice, or soft palate swelling. NECK: Supple. No lymphadenopathy CHEST: Clear to auscultation, breath sounds equal. No respiratory distress, speaks in full sentences. HEART: Regular rate and rhythm. No murmur heard. SKIN: Warm, dry, no rash. NEURO: Alert and oriented x3. Course Course Emergency Course: Patient is aware of diagnosis, understands and agrees to treatment plan. Anticipatory guidance given. Patient agrees to follow-up as directed and is aware of reasons to seek care at the emergency department. Portions of this record may have been created with voice recognition software Level of Care: Express Care Visit Vital Signs Vital signs: Vital Signs Temperature 98.3 F 11/07/22 09:17 Pulse Rate 80 11/07/22 09:17 Respiratory Rate 14 11/07/22 09:17 Blood Pressure 119/62 11/07/22 09:17 Pulse Oximetry 100 11/07/22 09:17 Oxygen Delivery Room Air 11/07/22 09:17 Temperature 98.3 F 11/07/22 09:17 Pulse Rate 80 11/07/22 09:17 Respiratory Rate 14 11/07/22 09:17 Blood Pressure 119/62 11/07/22 09:17 Pulse Oximetry 100 11/07/22 09:17 Oxygen Delivery Room Air 11/07/22 09:17 MDM - URI/Sore Throat MDM Narrative Medical decision making narrative: strep result reviewed with pt. Advise supportive treatments. Patient is appropriate for outpatient treatment and follow-up. Differential Diagnosis Differential diagnosis: Likely upper respiratory infection, viral infection and pharyngitis Discharge Plan Discharge Clinical Impression: Allergic rhinitis Patient Disposition: Home, Self-Care Condition: Stable Instructions: Antibiotic Form, Allergies (ED) Additional Instructions: Rapid strep swab was negative today You will be notified in a few days if the culture comes back positive for strep, and appropriate antibiotics will be called in at that time. if symptoms are due to a viral illness, it is not treated with antibiotics. Viral symptoms can be present for up to 10-
== END 2022-11-07 10:12 | disposition home or self-care (01) ==
PROVIDERS: Emergency Provider Nurse Practitioner Family; PCP Nurse Practitioner Family
DX: J30.9 Allergic rhinitis, unspecified (principal); F17.200 Nicotine dependence, unspecified, uncomplicated
CPT/HCPCS: 87081; 87880; 99213; G0463

== ENCOUNTER 2024-01-05 17:20 | Emergency (ER) | payer OTHER, SELFPAY ==
--- NOTE | 2024-01-05 17:29 | ED.FEMALEGU ---
HPI - Female Genitourinary General Chief complaint: Urogenital-Female Stated complaint: Vaginal Problems Time Seen by Provider: 01/05/24 17:40 Source: patient Mode of arrival: ambulatory Limitations: no limitations History of Present Illness HPI Narrative: Emmy is a 23-year-old female patient presenting to the clinic today with complaints of vaginal discharge and odor for the past 4 days. Also reports some lower abdominal pelvic cramping. Her menses are irregular and she is having some spotting. Patient has an IUD in place. Has an ultrasound scheduled for next month to rule out PCOS/uterine fibroids. States last intercourse with her boyfriend was 2 weeks ago. He denies any penile discharge or symptoms. When asked about STI she is not concerned however she is willing to be tested. She denies any urinary symptoms, fever, chills, flank pain, or body aches. Related Data Home Medications Medication Instructions Recorded Confirmed No Home Medications 01/05/24 01/05/24 Allergies Allergy/AdvReac Type Severity Reaction Status Date / Time amoxicillin [From Amoxil] Allergy Other Verified 01/05/24 17:22 Review of Systems Review of Systems: Pertinent positives per HPI. Patient denies any fever, chills, rash, headache, visual changes, dizziness, cough, runny nose, sore throat, shortness of breath, chest pain, palpitations, nausea, vomiting, diarrhea, constipation, or any urinary issues. PMFSH Past Medical History Medical History UTI (urinary tract infection) Family History Family History Other No acute medical problems Social History Social History Smoking status: Current every day smoker Alcohol intake: never Comments At the time of my signature, I reviewed and agree with the nursing past medical, surgical, social, and family history. There is no relevant family history pertinent to the patient complaint. Exam Narrative: General: Well-developed, well nourished, in no apparent distress. Head: Normocephalic, atraumatic. Cardio: Regular rate and rhythm, s1 and s2 normal, no murmur appreciated. Resp: Clear to auscultation bilaterally, no rhonchi, rales, wheezing or rubs. Abdomen: Soft, pliable, bowel sounds present in all quadrants, non-tender to palpation, no organomegly, no CVAT tenderness : Pelvic exam performed with (Cora SHABAZZ) at bedside. Verbal consent obtained from patient. Normal external female genitalia without lesions or masses, Urinary meatus: patent without discharge, Vagina: No lesions, masses, or discharge, Cervix: pink without mass, lesions, discharge, or tenderness. Scant brown tension discharge and pelvic vault Adnexa: without palpable mass or tenderness. Course Course Emergency Course: Portions of this record may have been created with voice recognition software. Level of Care: Express Care Visit Vital Signs Vital signs: Vital Signs Temperature 37.0 C 01/05/24 17:38 Pulse Rate 76 01/05/24 17:38 Respiratory Rate 18 01/05/24 17:38 Blood Pressure 106/65 01/05/24 17:38 Pulse Oximetry 100 01/05/24 17:38 Oxygen Delivery Room Air 01/05/24 17:38 Temperature 37.0 C 01/05/24 17:38 Pulse Rate 76 01/05/24 17:38 Respiratory Rate 18 01/05/24 17:38 Blood Pressure 106/65 01/05/24 17:38 Pulse Oximetry 100 01/05/24 17:38 Oxygen Delivery Room Air 01/05/24 17:38 Vital signs reviewed MDM - Female Genitourinary MDM Narrative Medical decision making narrative: At the time of visit patient is resting comfortably on the exam table. Patient appears to be nontoxic. Labs: Genital culture, bacterial vaginosis swab, chlamydia, Trichomonas, and gonorrhea Plan: Will send swabs for testing. Will hold any medication at this time until results come back and then we c
[2024-01-05 17:38] VITALS: BP 106/65; PULSE 76; RESP 18; TEMP 37; O2SAT 100
[2024-01-05 19:51] LABS: Trichomonas Vag PCR NOT DETECTED (NOT DETECTE)
[2024-01-05 20:12] LABS: Chlamydia trachomatis NOT DETECTED (NOT DETECTE); Neisseria gonorrhoeae PCR NOT DETECTED (NOT DETECTE)
[2024-01-08 16:09] LABS: Bacterial Vaginosis POSITIVE (NEGATIVE)
== END 2024-01-05 17:55 | disposition home or self-care (01) ==
PROVIDERS: Emergency Provider Nurse Practitioner Family
DX: N76.0 Acute vaginitis (principal); F17.200 Nicotine dependence, unspecified, uncomplicated
CPT/HCPCS: 81513; 87070; 87491; 87591; 87661; 99214; G0463

== ENCOUNTER 2024-01-17 15:46 | Outpatient (CLI) | payer OTHER, SELFPAY ==
--- NOTE | ~2024-01-17 | US_ITS ---
Pelvic ultrasound. Clinical History: Dysmenorrhea Technique: Realtime transabdominal and transvaginal scanning of the pelvis was performed. Color flow Doppler and Doppler spectral analysis were performed. Findings: The uterus is anteverted. The endometrial stripe has a thickness of 3 mm. IUD in satisfact ory position. No focal mass is identified. The right ovary measures 2.9 x 2.2 x 2.2 cm. No significant right ovarian or adnexal mass is seen. The left ovary measures 2.1 x 2.7 x 1.7 cm. No significant left ovarian or adnexal mass is seen. Vascular flow present in both ovaries on Doppler spectral analysis. There is small amount of free fluid in the cul de sac. Impression: IUD in place. Small amount of free fluid. Reviewed, dictated and finalized at [facility]. Impression: IUD in place. Small amount of free fluid.
== END 2024-01-17 15:47 | disposition home or self-care (01) ==
LOC: ANHIMG 15:50
DX: N94.6 Dysmenorrhea, unspecified (principal); Z97.5 Presence of (intrauterine) contraceptive device
CPT/HCPCS: 76830; 76856

== ENCOUNTER 2024-12-06 18:35 | Emergency (ER) | payer OTHER, SELFPAY ==
--- NOTE | ~2024-12-06 | CT_ITS ---
CT abdomen pelvis w con Ordering provider: Grayson Rosario MD History: 24 years Female with . lower abd pain . Comparison: None. Technique: CT abdomen and pelvis with IV and without oral contrast. Automated exposure control and it erative reconstruction technique were employed. The dose-length product was 260.64 mGy-cm. Findings: VISUALIZED LOWER CHEST: Normal. UPPER ABDOMINAL ORGANS: Liver: Normal. Gallbladder: Contracted. Spleen: Normal. Stomach/duodenum: Normal. Pancreas: Normal. Adrenals: Normal. Kidneys: Normal. PELVIC ORGANS: The bladder is underfilled. IUD is seen in the uterus. BOWEL AND MESENTERY: Colon: No evidence of diverticulitis. Fecal material is loaded in the colon. Normal appendix. Small Bowel: Normal. No obstruction. Peritoneum/mesentery: No free air or free fluid. No mesenteric lymphadenopathy. Small mesenteric lymp h nodes are noted. RETROPERITONEUM: Normal aorta. No retroperitoneal lymphadenopathy. MUSCULOSKELETAL: Superficial soft tissues: The superficial soft tissues are normal. Bones: Normal spine. IMPRESSION: 1. No evidence of appendicitis, diverticulitis or intestinal obstruction. 2. Constipation. Reviewed, dictated and finalized at location A.
--- OUTSIDE RECORDS SUMMARY | 2024-12-06 18:38 | XMS_ITS | Data Portability ---
Author Organization [place] - [facility] [employer], Main Office Address [address] [place] [address] Assessment Encounter Date Assessment Date Assessment LastModified by Organization Details LastModified Time 12/04/2024 12/04/2024 I have reconciled the patient's medications post their discharge from inpatient facility. Not available 12/04/2024 09:37:19 Plan of Treatment Reminders Order Date Submit Date Provider Last Modified By Organization Details Last Modified Time Details Appointments New Patient 15 2024 11:00A M Aimee Lakhani MD Not available Not available Not available Lab glycohem oglobin, total, blood 2023 024 [facility] (Lab), [address] [place], [address], 11/22/2023 15:45:38 TSH, serum or plasma 2023 024 [facility] (Lab), [address] [place], [address], 11/22/2023 15:45:39 bacteria l vaginosi s + vaginiti s panel, vaginal - yeast, BV, Trich, Gono, chlam 2022 [email or web address] [facility] (Lab), [address] [place], [address], 04/19/2023 12:55:54 tb (M tubercul osis), ifn-gamm a marco, blood 2022 023 [facility] (Lab), [address] [place], [address], 01/20/2023 14:16:[address] referral - Please call patient to schedule an appointm ent. Thank you. 2024 025 [facility], [address] [facility], [place], [address], 12/04/2024 10:30:32 gynecolo gist referral - Please call patient to schedule an appointm ent. Thank you. 2023 024 [email or web address] Not available 12/20/2023 08:40:55 Procedures None recorded . Surgeries None recorded . Imaging MRI, abdomen + pelvis, w/wo contrast [address] ([facility]), [address] [place], [address], 12/05/2024 15:01:42 US, pelvis - *Please call pt to schedule * [email or web address] [place] [address], [address], [place], [address], 12/26/2023 09:47:07 Medication Orders Xifaxan 550 mg tablet 2024 025 [facility]2319, [address] [facility], [place], [place], [id number], 12/04/2024 09:55:14 fluconaz ole 150 mg tablet 2023 024 [facility], [address] [place], [place], [id number], 12/04/2024 09:38:10 Medrol (Abraham) 4 mg tablets in a dose pack 2022 023 [email or web address] [facility], [address] [place], [place], [id number], 01/18/2023 16:34:59 doxycycl ine hyclate 100 mg tablet 2022 Ghada [facility] #01932, [address] [facility], [place], [place], [id number], 01/18/2023 16:35:04 Patient TargetsNo targets recorded. Patient Instructions Encounter Date Encounter Id Patient Instructions Last Modified By Organization Details Last Modified Time 12/04/2024 [id number] Thank you for your visit to our office today. We would like to request that you reach out to your referring or previous provider and request that they send us a Summary of Care in electronic form, so that we may have it on file in your medical record. At your visit, we had the medical records we needed to provide you with the best possible care; however, for insurance purposes, an electronic Summary of Care is beneficial. Thank you for your assistance in obtaining this information and we look forward to providing continued care to you. Please review your medication list from the Summary of Care for this visit. If there are any differences from what you are currently taking at home, please call us to discuss. Not available 12/04/2024 09:37:19 Homebound Status : {{Patient has an inability to leave the home without a taxing effort and assistance from another person Does not meet homebound status*}} Required Home Health Services: {{none* long-term, physical therapy, occupational therapy long-term, physical therapy long-term}} Durable Medical Equipment needed: {{cane walker wal ker with seat manual wheelchair bedsid e commode oxygen}} Billing Guidelines CPT code 81388- Transitional Care Management services with moderate medical decision complexity (xchs-vo-jast visit within 14 days of discharge). CPT code 71036- Transitional Care Management services with high medical decision complexity (ffim-em-xfbz visit within 7 days of discharge). jakker Not available 12/04/2024 10:03:00 Reason for Referral Newspaper Publisher Referral for Dy smenorrhea Please call patient to schedule an appointment. Thank you. Referring Physician: Idalia Payne, Family Medicine, Encounter Date: 11/21/2023 Economics Analyst Referral for Abdominal pain Please call patient to schedule an appointment. Thank you. Referring Physician: Idalia Payne, Family Medicine, Encounter Date: 12/04/2024 Results Created Date Observation Date Name Description Value Unit Range Abnormal Flag Note LastModifiedBy Organization Detail LastModifiedTime 03/14/2003/16/2023 BACTE RIAL VAGIN OSIS, CARMELITA atopobium vaginae High - 2 score abnormal Not Available [facility] (Lab) [address] [place], [address], 03/16/2023 23:07:28 03/14/20 23 03/16/2023 BACTE RIAL VAGIN OSIS, CARMELITA bvab 2 High - 2 score abnormal Not Available [facility] (Lab) [address] [place], [address], 03/16/2023 23:07:28 03/14/20 23 03/16/2023 BACTE RIAL VAGIN OSIS, CARMELITA megasphaera 1 High - 2 score abnormal . Calcu late total score by joey reis the 3 indiv idual bacte rial vagin osis (BV) marke r score s toget her. Total score is inter prete d as follo ws: Total score 0-1: Indic ates the absen ce of BV. Total score 2: Indet ermin ate for BV. Addit ional clini srikanth data shoul d be evalu ated to estab rory a diagn osis. Total score 3-6: Indic ates the prese nce of BV. . This test was devel oped and its perfo rmanc e martinez cteri stics deter mined by [facility]. It has not been clear ed or appro panchito by the Food and Drug Admin istra tion. Perfo rmed at: =G - [facility] [address] [place] [address] Lab Direc tor: Priyank cote MD, Phone : [phone] Not Available [facility] (Lab) [address] [place], [address], 03/16/2023 23:07:28 01/18/20 24 01/17/2024 , aleksander villanueva No observ ation record ed. [facility] [address] [facility] [address], [place], [address], 01/18/2024 15:16:15 Result Notes None recorded. Problems Name Problem SNOMED Code Status Onset Date Resolution Date Notes Provider Name and Address Organization Details Recorded Time Overweight 848865388 Active 2021 Not Available [facility] 3 01:00:11 Electronic cigarette user 266466067 Active 2021 Not Available [facility] 3 01:00:11 Acute otitis media 2801103 Active 2022 Soraya Michele NP [address], [address], [place], [address] , [facility] [employer] 3 11:43:47 Vaginal irritation 806888238 Active 2022 Soraya Michele NP [address], [address], [place], [address] , [facility] [employer] [facility] [employer] 3 17:28:15 Bacterial vaginosis 290255110 Active 2022 Soraya Michele NP [address], [address], [place], [address] , [facility] 3 09:22:15 Pityriasis versicolor 89743663 Active 2023 ALYSHA Esqueda [address], [address], [place], [address] , [facility] [employer] 4 11:00:06 Weight gain 1220833 Active 2023 ALYSHA Esqueda [address], [address], [place], [address] , [facility] 4 11:01:03 Serum thyroxine level outside reference range 787197850 Active 2023 ALYSHA Esqueda [address], [address], [place], [address] , [facility] [employer] [facility] [employer] 4 11:01:22 Dysmenorrhea 738955746 Active 2023 ALYSHA Esqueda [address], [address], [place], [address] , [facility] [employer] [facility] [employer] [facility] [employer] 4 11:01:58 Abdominal pain 75217392 Active 2024 ALYSHA Esqueda [address], [address], [place], [address] , [facility] [employer] [facility] [employer] 5 09:53:53 Irritable bowel syndrome with diarrhea 273213377 Active 2024 ALYSHA Esqueda [address], [address], [place], [address] , [facility] [employer] [facility] [employer] 5 09:54:29 Problem Notes None recorded. Procedures Surgical History Date Name Laterality Status Provider Name and Address Organization Details Recorded Time 12/04/2024 Transition al_Care_Ma nagement completed ALYSHA Esqueda [address], [place], [address], [facility] [employer] 12/04/2024 10:01:41 Imaging Results Imaging Date Name Status LastModified by Organiz ation Details LastModified Time 01/17/2024 US, pelvis completed [facility] [address], [place], [address], 01/18/2024 15:16:15 Procedure Notes None recorded. Medical Equipment None Reported. Allergies Allergen ID Allergen Name Allergen Category Reaction Reaction Severity Criticality Documentation Date Start Date Code Code System Note Provider Name and Address Organization Details Recorded Time 44850 amoxicill in medicatio n Not available Not available Not available 12/07/2022 723 RxNorm mouth sores Soraya Acosta RN [facility], [facility] [employer] [facility] [employer] 5 09:35:25 Medications Name Sig Start Date Stop Date Status Note LastModified by Organization Details LastModified Time ibuprofen 800 mg tablet TAKE 1 TABLET BY MOUTH EVERY 8 HOURS NEEDED 12/23 completed Not Available Not Available Not Available fluconazole 150 mg tablet TAKE 2 TABLETS BY MOUTH EVERY WEEK 12/04 completed Not Available Not Available Not Available metronidazo le 0.75 % (37.5 mg/5 gram) vaginal gel INSERT ONE APPLICATO RFUL VAGINALLY AT BEDTIME FOR 5 NIGHTS active Not Available Not Available No t Available clindamycin HCl 150 mg capsule TAKE 1 CAPSULE BY MOUTH EVERY 6 HOURS FOR 7 DAYS 12/23 completed Not Available Not Available Not Available metronidazo le 500 mg tablet TAKE 1 TABLET BY MOUTH TWICE DAILY FOR 5 DAYS DIRECTED 12/04 completed Not Available Not Available Not Available tramadol 50 mg tablet TAKE 1 TABLET BY MOUTH EVERY 6 HOURS NEEDED FOR PAIN 12/07 completed Not Available Not Available Not Available benzonatate 100 mg capsule TAKE 1 CAPSULE BY MOUTH EVERY 8 HOURS NEEDED 12/07 completed Not Available Not Available Not Available triamcinolo ne acetonide 0.1 % topical ointment APPLY THIN LAYER TOPICALLY TO THE AFFECTED AREA TWICE DAILY 12/23 completed Not Available Not Available Not Available promethazin e 25 mg tablet TAKE 1 TABLET BY MOUTH EVERY 6 HOURS NEEDED 12/23 completed Not Available Not Available Not Available methylpredn isolone 4 mg tablets in a dose pack FOLLOW PACKAGE DIRECTION S 01/18 completed Not Available Not Available Not Available cefdinir 300 mg capsule TAKE 1 CAPSULE BY MOUTH EVERY 12 HOURS 12/23 completed Not Available Not Available Not Available doxycycline hyclate 100 mg tablet TAKE 1 TABLET BY MOUTH TWICE DAILY FOR 10 DAYS 01/18 completed Not Available Not Available Not Available amoxicillin 500 mg-potassiu m clavulanate 125 mg tablet TAKE 1 TABLET BY MOUTH EVERY 12 HOURS FOR 7 DAYS 12/23 completed Not Available Not Available Not Available nitrofurant oin monohydrate /macrocryst als 100 mg capsule TAKE 1 CAPSULE BY MOUTH EVERY 12 HOURS FOR 5 DAYS 12/23 completed Not Available Not Available Not Available Xifaxan 550 mg tablet TAKE 1 TABLET BY MOUTH THREE TIMES DAILY FOR 14 DAYS DIRECTED active Not Available Not Available No t Available Estarylla 0.25 mg-0.035 mg tablet TAKE 1 TABLET BY MOUTH EVERY DAY 12/07 completed Not Available Not Available Not Available Kyleena 17.5 mcg/24 hr (up to 5 years) 19.5 mg intrauterin e device Take by intrauter ine route. active Not Available Not Available No t Available Solosec [address] granules in packet MIX AND DRINK 1 PACKET BY MOUTH 1 TIME FOR 1 DOSE 11/20 completed Not Available Not Available Not Available ID NOW COVID-19 Test Kit TEST DIRECTED TODAY 12/07 completed Not Available Not Available Not Available Vitals Date Recorded Body height Body mass index (BMI) Body weight Body temperature Heart rate Respiratory rate Oxygen saturation Oxygen saturation in Arterial blood by Pulse oximetry Pain severity - 0-10 verbal numeric rating [Score] - Reported Systolic blood pressure Diastolic blood pressure Provider Name and Address Organization Details Last Updated DateTime 3 162.56 cm 23.6 kg/m2 80135.9 g 98.5 [degF] 75 /min 16 /min 97 % 97 % 2 98 mm[Hg] 72 mm[Hg] Soraya Acosta RN [facility] [employer] 3 11:34:00 Date Recorded Body height Body mass index (BMI) Body weight Body temperature Heart rate Respiratory rate Oxygen saturation Oxygen saturation in Arterial blood by Pulse oximetry Systolic blood pressure Diastolic blood pressure Provider Name and Address Organization Details Last Updated DateTime 3 162.56 cm 23.7 kg/m2 96811.7 5 g 98.1 [degF] 96 /min 16 /min 98 % 98 % 114 mm[Hg] 70 mm[Hg] Savi Blandon RN [facility] [employer] 3 16:34:46 Date Recorded Body height Body mass index (BMI) Body weight Body temperature Provider Name and Address Organization Details Last Updated DateTime 11/21/2023 162.56 cm 24.7 kg/m2 63090.65 g 98 [degF] Niall Dennis Clctin [facility] [employer] 11/21/2023 10:36:08 Date Recorded Heart rate Respiratory rate Oxygen saturation Oxygen saturation in Arterial blood by Pulse oximetry Pain severity - 0-10 verbal numeric rating [Score] - Reported Systolic blood pressure Diastolic blood pressure Provider Name and Address Organization Details Last Updated DateTime 4 78 /min 20 /min 99 % 99 % 0 110 mm[Hg] 70 mm[Hg] Soraya Acosta RN [facility] [employer] 4 10:39:23 Date Recorded Body weight Body mass index (BMI) Body height Body temperature Heart rate Respiratory rate Oxygen saturation Oxygen saturation in Arterial blood by Pulse oximetry Pain severity - 0-10 verbal numeric rating [Score] - Reported Systolic blood pressure Diastolic blood pressure Provider Name and Address Organization Details Last Updated DateTime 5 74493.2 3 g 25.3 kg/m2 162.56 cm 98.4 [degF] 67 /min 20 /min 97 % 97 % 1 120 mm[Hg] 70 mm[Hg] Soraya Acosta RN [facility] [employer] [facility] 5 09:41:03 Social History Question Answer Notes LastModified by Organizat ion Details LastModified Time Do You Have An Advance Directive? No MIGRATION.[id number] Information not available 10/13/2022 What Is Your Level Of Alcohol Consumption? Occasional MIGRATION.83739 91752 Information not available 10/13/2022 Is Blood Transfusion Acceptable In An Emergency? Yes Information not available 12/07/2022 What Is Your Level Of Caffeine Consumption? Moderate MIGRATION.56082 68980 Information not available 10/13/2022 What Is Your Code Status? Full Code Information not available 12/07/2022 In The 14 Days Before Symptom Onset, Have You Had Close Contact With A Laboratory-confi rmed COVID-19 While That Case Was Ill? No MIGRATION.58838 84151 Information not available 10/13/2022 In The 14 Days Before Symptom Onset, Have You Had Close Contact With A Person Who Is Under Investigation For COVID-19 While That Person Was Ill? No MIGRATION.37899 60827 Information not available 10/13/2022 What Type Of Diet Are You Following? REGULAR Low Carb, Low Sugar MIGRATION.38523 11660 Information not available 10/13/2022 Do You Or Have You Ever Used E-cigarettes Or Vape? Former User Of Electronic Cigarettes Information not available 12/04/2024 What Is The Highest Grade Or Level Of School You Have Completed Or The Highest Degree You Have Received? 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 7 Information not available 12/07/2022 On Those Days That You Engage In Moderate To Strenuous Exercise, How Many Minutes, On Average, Do You Exercise? 60 Information not available 12/07/2022 Have There Been Any Changes To Your Family Or Social Situation? No MIGRATION.78470 25521 Information not available 10/13/2022 What Is The Fluoride Status Of Your Home? Unknown MIGRATION.46728 06447 Information not available 10/13/2022 Are There Any Guns Present In Your Home? No MIGRATION.44491 49952 Information not available 10/13/2022 Do You Use Insect Repellent Routinely? Yes MIGRATION.10092 81839 Information not available 10/13/2022 Where Do You Live? [facility] MIGRATION.39405 47023 Information not available 10/13/2022 Do You Have A Medical Power Of Coffee Plantation Worker? No MIGRATION.79267 74626 Information not available 10/13/2022 How Many Children Do You Have? 0 Information not available 12/07/2022 Do You Have Any Pets? Yes MIGRATION.20750 80185 Information not available 10/13/2022 What Is Your Relationship Status? Single MIGRATION.73639 26292 Information not available 10/13/2022 Do You Use Your Seat Belt Or Car Seat Routinely? Yes MIGRATION.30954 80557 Information not available 10/13/2022 Do You Have Smoke And Carbon Monoxide Detectors In Your Home? Yes MIGRATION.53368 72640 Information not available 10/13/2022 Are You Passively Exposed To Smoke? No MIGRATION.78447 79457 Information not available 10/13/2022 Are There Any Smokers In Your House? No MIGRATION.36980 53482 Information not available 10/13/2022 Do You Participate In Social Media? Yes MIGRATION.71248 80167 Information not available 10/13/2022 What Types Of Sporting Activities Do You Participate In? Variety Information not available 12/07/2022 Do You Feel Stressed (tense, Restless, Nervous, Or Anxious, Or Unable To Sleep At Night)? [id number] MIGRATION.03340 25650 Information not available 10/13/2022 Do You Use Any Illicit Or Recreational Drugs? No MIGRATION.03563 36707 Information not available 10/13/2022 Do You Use Sunscreen Routinely? Yes MIGRATION.45330 68694 Information not available 10/13/2022 Have You Recently Traveled Abroad? No MIGRATION.42766 34364 Information not available 10/13/2022 Are You Currently In School? Yes [facility] MIGRATION.94560 02034 Information not available 10/13/2022 Do You Have Any Dietary Restrictions? No MIGRATION.38945 28247 Information not available 10/13/2022 Do You Or Have You Ever Used Any Other Forms Of Tobacco Or Nicotine? Yes MIGRATION.70732 68896 Information not available 10/13/2022 How Many Years Have You Used E-cigarettes Or Vape? 2 MIGRATION.16898 51814 Information not available 10/13/2022 Sex: Female Functional Status Question Answer Note LastModified by Organizat ion Details LastModified Time What is your exercise level? Heavy MIGRATION.[id number] Information not available 10/13/2022 Mental Status None recorded. Family History Relationship Description Onset Age of this Age Resolved Age Notes LastModified by Organization Details LastModified Time Father Hypertensive disorder age 57 [id number].109 [id number] Not available 10/13/2022 00:59:13 Father Bipolar disorder MIGRATION.071 [id number] Not available 10/13/2022 00:59:13 Sister Bipolar disorder MIGRATION.623 [id number] Not available 10/13/2022 00:59:13 Medical History Condition Response MUSCLE,JOINT OR BONE PROBLEMS Y Gynecological History Statement/Question Response Date of LMP Sexually Active? N STIs/STDs N Current Control Method IUD Breast Problems none Discharge none Obstetrics History GPAL:G 0 P 0 0 0 0 Immunizations Vaccine Type Date Status Note Provider Nam e and Address Organization Details Recorded Time [facility] 1 completed MELE Saenz, [facility] [employer] [facility] 01/20/2023 09:59:43 DT 1 completed MELE Saenz, [facility] [employer] [facility] 01/20/2023 10:00:38 DT 1 completed MELE Saenz, [facility] [employer] [facility] 01/20/2023 10:01:08 DT 2 completed Soraya Acosta RN null, [facility] 01/20/2023 10:01:32 DTP 6 completed Soraya Acosta RN null, [facility] 01/20/2023 10:02:00 Hep B, adolescent/high risk 1 completed Soraya Acosta RN null, [facility] 01/20/2023 10:02:36 Hep B, adult 1 completed Soraya Acosta RN null, [facility] 01/20/2023 10:03:17 Hep B, adult 1 completed Soraya Acosta RN null, [facility] 01/20/2023 16:40:01 Hib, unspecified formulation 1 completed Soraya Acosta RN null, [facility] 01/20/2023 16:40:24 Hib, unspecified formulation 1 completed Soraya Acosta RN null, [facility] 01/20/2023 17:11:00 Hib, unspecified formulation 1 completed Soraya Acosta RN null, [facility] 01/20/2023 17:11:30 Hib, unspecified formulation 2 completed Soraya Acosta RN null, [facility] 01/20/2023 17:11:58 HPV, unspecified formulation 5 completed Soraya Acosta RN null, [facility] 01/20/2023 17:12:24 HPV, unspecified formulation 6 completed Soraya Acosta RN null, [facility] 01/20/2023 17:12:53 meningococcal MCV4, unspecified formulation 2 completed Soraya Acosta RN null, [facility] 01/20/2023 17:13:17 meningococcal MCV4, unspecified formulation 8 completed Soraya Acosta RN null, [facility] 01/20/2023 17:13:38 MMR 2 completed Soraya Acosta RN null, [facility] 01/20/2023 17:14:09 MMR 6 completed Soraya Acosta RN null, [facility] 01/20/2023 17:14:31 polio, unspecified formulation 1 completed Soraya Acosta RN null, [facility] 01/20/2023 17:15:00 polio, unspecified formulation 1 completed Soraya Acosta RN null, [facility] 01/20/2023 17:15:17 polio, unspecified formulation 2 completed Soraya Acosta RN null, [facility] 01/20/2023 17:15:49 polio, unspecified formulation 6 completed Soraya Acosta RN null, [facility] 01/20/2023 17:16:11 Tdap 2 completed Soraya Acosta RN null, [facility] 01/20/2023 17:16:42 varicella 3 completed Soraya Acosta RN null, [facility] 01/20/2023 17:17:08 varicella 5 completed Soraya Acosta RN null, [facility] 01/20/2023 17:17:26 Tdap 3 completed Soraya Acosta RN null, [facility] 01/18/2023 18:06:32 Past Encounters Encounter ID Performer Location Encounter Start Date Encounter Closed Date Diagnosis/Indication Diagnosis SNOMED-CT Code Diagnosis ICD10 Code Diagnosis Note [id number] [facility] [address] [place] [id number] 12/23/2021 00:00:00 12/23/2021 15:29:20 [id number] [facility]_[address] [address] 12/27/2021 00:00:00 12/27/2021 09:02:[id number] [address] 02/01/2022 00:00:00 02/01/2022 13:01:40 [id number] Soraya Michele NP [address] [address] 12/07/2022 11:23:31 12/07/2022 11:57:35 Acute otitis media 6110703 H66.91 Medrol dose abraham, doxy sent. Work note for today and return on 12/08/22. [id number] Soraya Michele NP [address] [address] 01/18/2023 16:29:50 01/18/2023 17:07:20 History and physical examination, [facility] 60703896 Z02.0 Form received and on hold for patient to present Immunizati on records. riky Alexandre. Active or passive immunization 801239603 Z23 will get shot record from previous PCP office. Administra tion of diphtheria, pertussis, and tetanus vaccine 285507631 Z23 [employer]. Tuberculos is screening 547431441 Z11.1 pt to get done alex as it will take aprox 10 days to return. [id number] Soraya Michele NP [address] [address] 03/14/2023 17:23:27 03/14/2023 18:11:47 Vaginal irritation 870024891 N89.8 nurse visit for vaginitis swab. 03/14/23 [id number] ALYSHA Esqueda [address] [address] 11/21/2023 10:32:25 11/21/2023 11:22:30 Pityriasis versicolor 78423273 B36.0 Weight gain 1882845 R63. 5 Dysmenorrhea 650579455 N 94.6 [id number] ALYSHA Esqueda [address] [place] [address] 12/04/2024 09:28:58 12/04/2024 09:58:59 Transition of care [id number] 105 Z75.8 Continue medication s as directed, FU with GI as orderedWil l complete more in depth imaging due to severity of pain Abdominal pain [id number] R10.9 Moderate to severe, guarding, brusing on abd, CT negative Irritable bowel syndrome with diarrhea [id number] K58.0 Will attempt xifaxan to help with gas pains Health Concerns Section Related Observation LastModified by Organization Detai ls LastModified Time None Recorded Concern Status LastModified by Organization Details LastModified Time None Recorded Advance Directives Directive N: Payers Encounter Date Sequence Insurance Name Policy Number Policy Braxton Covered Member ID Braxton Member ID Guarantor Name 12/07/2022 1 [facility] ON OR AFTER 02/11/21 (MEDICAID REPLACEMENT - HMO) Katrin Erickson [id number] Katrin Erickson 01/18/2023 1 [facility] ON OR AFTER 02/11/21 (MEDICAID REPLACEMENT - HMO) Katrin Erickson [id number] Katrin Erickson 03/14/2023 1 [facility] ON OR AFTER 02/11/21 (MEDICAID REPLACEMENT - HMO) Katrin Erickson [id number] Katrin Erickson 11/21/2023 1 [facility] ON OR AFTER 02/11/21 (MEDICAID REPLACEMENT - HMO) Katrin Erickson [id number] Katrin Erickson 12/04/2024 1 [facility] ON OR AFTER 02/11/21 (MEDICAID REPLACEMENT - HMO) Katrin Erickson [id number] Katrin Erickson Notes Date Note Type Note Provider Name and Address Organization Details Recorded Time 12/07/2022 text/html Here for right ear pain.Started yesterday with a lot of pressure, then this morning intense sharp pain and feeling like water is stuck. No fever or chills. Did use dayquil around 930. 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 Pt did not bring shot record with her today for review.Likely needs tdap as she hasn't had any shots since graduation. Soraya Michele NP [address], [place], [address], [employer] [employer] 01/18/2023 17:05:52 03/14/2023 text/html Here for vaginal swab, nurse schedule. Soraya Michele NP [address] [facility], [facility] [address], [place], [address], [facility] [employer] 03/15/2023 07:14:16 11/21/2023 text/html She will have white spots on her back, they are worse when she tans. Her aunt gave her a spot to use but it hasn't been working. She is gaining weight and can't figure out why. She is working out every day with weight training. She is eating lean, drinking a gallon of water daily. She has a lot of food cravings and never feels full. She is worried that her hormones are messed up . Her periods are lasting on average 11 days. She is doing parasite cleanse and yeast buster from [employer], worms in bowel movements, she has added in amazing grass greens and vitamins daily. Vitamins include Azanthin, probiotic, cranberry, D3, K2, Biotin, Beet root, Apple Cider Vinegar. Advised to stop cranberry and apple cider vinegar. 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 She admits to some anxiety but denies depression. Recently witnesses a still in clinicals. She has a kyleena IUD. Flu shot: OVID vaccine: 2020TDap: 01/2023WWE: 2021, followed by OB ALYSHA Esqueda [address] [facility], [facility] [address], [place], [address], [facility] [employer] 11/21/2023 11:19:50 12/04/2024 text/html Katrin Erickson is a 24 year old female patient here today for an ER FU She began having abdominal pain on 4/10. She states she has a burning pain that begins on her upper right quadrant and radiates diffusely. Notes that 5-10 minutes after eating gets pain so severe she feels that she can pass out.Having daily diarrhea. Notes with bentyl she has more formed stools. Did try Imodium, this did not improve symptoms Idalia Payne, SLOTS MANAGER [address], [address], [place], [address], [place] [employer] [facility] 12/04/2024 17:15:36 OBGyn Episode No OBEpisode recorded.
--- OUTSIDE RECORDS SUMMARY | 2024-12-06 18:38 | XMS_ITS | Encounter Summary ---
Author Organization [employer] Address 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
--- OUTSIDE RECORDS SUMMARY | 2024-12-06 18:38 | XMS_ITS | Referral Summary ---
Author Organization [facility] Address [address] [place] [address] Care Team Providers Care Cosmetic Account Coordinator Name Role Phone No, Physician Primary Care Provider [phone] Allergies Active Allergy Reactions Criticality Noted Date Comments Penicillins Other (See comments) Low 05/22/2023 Sores in mouth Medications gabapentin (NEURONTIN) 300 mg capsule Take 1 capsule (300 mg total) by mouth nightly 30 capsule 0 Active Additional Information Patient not taking.Reported on 05/19/2022 norgestimate-et hinyl estradioL (ORTHO-CYCLEN) 0.25-35 mg-mcg per tablet Estarylla 0.25 mg-35 mcg tablet TAKE 1 TABLET BY MOUTH EVERY DAY Active traMADoL (ULTRAM) 50 mg tablet Take by mouth every 6 (six) hours as needed 2 Active Hospital, Clinic, or Other Facility Administered Medication Ordered Dose Route Frequency Start Date End Date Status levonorgestreL (KYLEENA) 17.5 mcg/24 hrs (5 yrs) 19.5 mg IUD 1 eachIndications:Ab normal Uterine Bleeding 1 each intrauterine Continuous (implanted device) 06/22/2022 Active Active Problems No known active problems Social History Tobacco Use Types Packs/Day Years Used Date Smoking Tobacco: Every Day Smokeless Tobacco: Never Alcohol Use Standard Drinks/Week Comments Never 0 (1 standard drink = 0.6 oz pur e alcohol) AUDIT-C Answer Date Recorded Q1: How often do you have a drink containing alc ohol? 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 file Not on file Not on file Last Filed Vital Signs Vital Sign Reading Time Taken Comments Blood Pressure 110/70 06/26/2024 2:54 PM ARBORICULTURE TEACHER Pulse 64 05/14/2019 1:19 AM CDT Temperature 36.5 C (97.7 F) 05/14/2019 1:19 AM CDT Respiratory Rate 18 05/14/2019 1:19 AM CDT Oxygen Saturation 100% 05/13/2019 11: 07 PM CDT Inhaled Oxygen Concentration - - Weight 69.3 kg (152 lb 12.8 oz) 06/26/2024 2:54 PM ARBORICULTURE TEACHER Height 162.6 cm (5' 4.02 ) 06/26/2024 2:54 PM CS T Body Mass Index 26.21 06/26/2024 2:54 PM ARBORICULTURE TEACHER Plan of Treatment Not on file Procedures Procedure Name Priority Date/Time Associated Diagnosis Comments N. GONORRHOEAE/C. TRACHOMATIS AMPLIFICATION Routine 06/26/2024 3:48 PM ARBORICULTURE TEACHER Well woman exam with routine gynecological exam from Last 3 Months or Most Recently Relevant to Health Maintenance Results * N. gonorrhoeae/C. trachomatis Amplification Vaginal (06/26/2024 3:48 PM ARBORICULTURE TEACHER) C. trachomatis Not Detected [facility] Comment:Testing performed by : [facility], [address] [facility] [place]., [address] N. gonorrhoeae Not Detected LETY SHARPE Comment: Interpretive Data This assay detects Chlamydia trachomatis and Neisseria gonorrhoeae by nucleic acid amplification testing (NAAT). This assay has been cleared by the [place] Food and Drug administration. The performance characteristics of this test have been verified by the [facility] Molecular Infectious Disease laboratory. The performance characteristics of this test have not been evaluated in individuals less than 14 years of age. Current Interpretive Data was last revised on 2023. Testing performed by: [facility], [address] [facility] [place]., [address] Vaginal 06/26/2024 3:48 PM ARBORICULTURE TEACHER 06/26/2024 11:17 PM ARBORICULTURE TEACHER us Trena Peguero NP LAB MICROBIOLOGY - GENERAL O RDERABLES Final Result LETY [address] [facility] Department [place] [address] [facility] from Last 3 Months or Most Recently Relevant to Health Maintenance Insurance [facility] Care Teams Cosmetic Account Coordinator Relationship Specialty Start Date End Date No, Physician PCP - General 10/14/20
--- OUTSIDE RECORDS SUMMARY | 2024-12-06 18:38 | XMS_ITS | Encounter Summary ---
Author Organization [facility] Address 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
--- OUTSIDE RECORDS SUMMARY | 2024-12-06 18:38 | XMS_ITS | Clinical Summary ---
Author Organization [facility] Address [address] [place] [address] Care Team Providers Care Tongue Stitcher Name Role Phone Loyda Alexandre MD Unavailable [phone] Loyda Alexandre MD Primary Care Provider Source Comments [facility],non-owned Affiliates and Associated Physician Practices is amultiple site organization consisting of ambulatory clinics and hospital sitesin [place], [place], [place] and [place]. This disclosure is being madepursuant to the Care Everywhere program and may not contain all information available regarding this patient. Last updated 18.[facility] Allergies No known active allergies Medications * Be aware that medications may not be up to date on this document. Alwaysverify current medications with the patient. norgestimate-eth inyl estradiol (ESTARYLLA) 0.25-35 MG-MCG tablet Take 1 tablet by mouth once daily 28 tablet 11 01/11/2019 Active Active Problems Problem Noted Date Diagnosed Date Chronic headaches 03/20/2012 Nevus 03/20/2012 Immunizations Immunization Administration Dates Next Due DTaP VACCINE IM (6wk-6yrs) 12/29/2005,,05/22/2001,03/08,01/09/2001 HEP A PEDS 2 DOSE 01/11/2019 HEP B VACCINE, PED/ADOL 08/09/2001,2000, HIB BOOSTER 05/20/2002, 1,03/08/2001,01/09 Human Papilloma Virus Natalie valent Vaccine 03/10/2015 Human Papilloma Virus Vaccine 03/08/2016, 016 MENINGOCOCCAL ACWY (MCV4P) VAC IM 01/04/2018,02/2012 MMR 12/29/2005,11/05/2001 POLIO IPV 12/29/2005, 2,03/08/2001,01/09 PPD 12/29/2005,11/05/2001 TDAP (7yrs+) 03/20/2012 VARICELLA 03/10/2015,10/10/2002 Social History Tobacco Use Types Packs/Day Years Used Date Smoking Tobacco: Never Smokeless Tobacco: Never Alcohol Use Standard Drinks/Week Comments Not Asked 0 (1 standard drink = 0.6 oz pur e alcohol) Comments No Sex and Gender Information Value Date Recorded Sex Assigned at Not on file Legal Sex Female 6:48 AM 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 Gender Identity Not on file Sexual Orientation Not on file Last Filed Vital Signs Vital Sign Reading Time Taken Comments Blood Pressure 116/78 01/11/2019 1:40 PM CDT Pulse 64 01/11/2019 1:40 PM CDT Temperature 36.8 C (98.2 F) 01/11/2019 1:40 PM CDT Respiratory Rate 16 03/15/2017 3:11 PM CDT Oxygen Saturation 98% 03/15/2017 3:11 PM CDT Inhaled Oxygen Concentration - - Weight 56.7 kg (125 lb) 01/11/2019 1:40 PM CDT Height 162.6 cm (5' 4 ) 01/11/2019 1:40 PM CDT Body Mass Index 21.46 01/11/2019 1:40 PM CDT Plan of Treatment Health Maintenance Due Date Last Done Comments HIV SCREENING 11/04/2015 CHLAMYDIA/GONORRHEA SCREENING 2016 HEPATITIS C SCREENING 10/30/2018 HEPATITIS A VACCINE (2 of 2 - Risk 2-dose series) 07/13/2019 01/11/2019 DTAP/TDAP/TD VACCINES (7 - Td or Tdap) 03/20/2022 03/20/2012, 12/29/2005, 05/20/2002, Additional history exists COVID-19 VACCINE ( - season) 2024 DEPRESSION SCREENING 08/14/2024 INFLUENZA VACCINE (Season Ended) 2025 ZOSTER VACCINE (1 of 2) 2050 HEPATITIS B VACCINE Completed 08/09/2001, 2000, 2000 HIB VACCINE Completed 05/20/2002, 04/2001, 03/08/2001, Additional history exists HPV VACCINE Completed 03/08/2016, 10/12, 03/10/2015 MENINGOCOCCAL GROUPS A/C/Y/W VACCINE Completed 01/04/2018, 03/20/2012 MENINGOCOCCAL (Group B) VACCINE SHARED DECISION-MAKING Aged Out No longer eligible based on patient's age to complete this topic PNEUMOCOCCAL VACCINE Aged Out No long er eligible based on patient's age to complete this topic Goals Goal Patient Goal Type Associated Problems Recent Progress Patient-Stated? Author Use safety retraint in car Lifestyle On track( 019 1:40 PM CDT) Ester Hughes RN Insurance [facility] Care Teams Tongue Stitcher Relationship Specialty Start Date End Date Loyda Alexandre MD PCP - Pediatrics 08/12/09 Loyda Alexandre MD PCP - General Pediatrics 02/28/12
--- OUTSIDE RECORDS SUMMARY | 2024-12-06 18:38 | XMS_ITS | Clinical Summary ---
Author Organization [facility] Address [address] [place] [address] Care Team Providers Care Target Trimmer Name Role Phone No, Physician Primary Care Provider [phone] Allergies Active Allergy Reactions Criticality Noted Date [...] Active Active Problems No known active problems Family History Medical History Relation Name Comments Heart disease Father Hypertension Father Breast cancer Mother's Sister Colon cancer Neg Hx Ovarian cancer Neg Hx Pancreatic cancer Neg Hx Prostate cancer Neg Hx Uterine cancer Neg Hx Relation Name Status Comments Father Alive Mother Alive Mother's Sister Social History Tobacco Use Types Packs/Day Years [...] on file Legal Sex Female 12:36 AM NEUROLOGY DIRECTOR Gender Identity Not on file Sexual Orientation Not on file Occupation Industry Job Start 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- [employer] 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 on file Not on file Not on file Obstetrics History Para Term AB IAB SAB Ectopic Multiple Livin g Live Births 1 1 Date Outcome GA Total Labor Labor/2nd/3rd Weight Sex Type Anes PTL Hillary A1 A5 Name Clin AB Comments Menarche:12 Last Filed Vital Signs Vital Sign Reading Time Taken Comments Blood Pressure 110/70 06/26/2024 2:54 PM NEUROLOGY DIRECTOR Pulse 64 05/14/2019 1:19 AM CDT Temperature 36.5 C (97.7 F) 05/14/2019 1:19 AM CDT Respiratory Rate 18 05/14/2019 1:19 AM CDT Oxygen Saturation 100% 05/13/2019 11: 07 PM CDT Inhaled Oxygen Concentration - - Weight 69.3 kg (152 lb 12.8 oz) 06/26/2024 2:54 PM NEUROLOGY DIRECTOR Height 162.6 cm (5' 4.02 ) 06/26/2024 2:54 PM CS T Body Mass Index 26.21 06/26/2024 2:54 PM NEUROLOGY DIRECTOR Plan of Treatment Health Maintenance Due Date Last Done Comments Cervical Cancer Screening 2000 Depression Screening 2000 Hepatitis C Screening 2000 Pneumococcal vaccine <65 (1 of 2 - PCV) 11/04/2019 DTaP/Tdap/Td Vaccine (7 - Td or Tdap) 03/20/2022 03/20/2012, 12/29/2005, 05/20/2002, Additional history exists Influenza Vaccine (Season Ended) 2025 08/16/19 19 Chlamydia and Gonorrhea (GC/ CT) Screening 06/26/2025 06/26/2024, 09/20/2023, 05/22/2023, Additional history exists Regular Well Visit/Exam 18-64 06/26/2025, 05/22/2023, 05/19/2022 Hepatitis B Screening Completed 08/09/2001 , 2000, 2000, Additional history exists Varicella Vaccines Completed 03/10/2015, 10/10/2002 HPV Vaccines Completed 03/08/2016, 10/12, 03/10/2015 Procedures Procedure Name Priority Date/Time Associated Diagnosis Comments N. GONORRHOEAE/C. TRACHOMATIS AMPLIFICATION Routine 06/26/2024 3:48 PM NEUROLOGY DIRECTOR Well woman exam with routine gynecological exam from Last 3 Months or Most Recently Relevant to Health Maintenance Results * N. gonorrhoeae/C. trachomatis Amplification Vaginal (06/26/2024 3:48 PM NEUROLOGY DIRECTOR) Pathologist [facility] C. trachomatis Not Detected [facility] Comment:Testing performed by : [facility], [address] [place] [address]., [id number] N. gonorrhoeae Not Detected LETY SHARPE Comment: Interpretive Data This assay detects Chlamydia trachomatis and Neisseria gonorrhoeae by nucleic acid amplification testing (NAAT). This assay has been cleared by the [place] Food and Drug administration. The performance characteristics of this test have been verified by the [facility] Molecular Infectious Disease laboratory. The performance characteristics of this test have not been evaluated in individuals less than 14 years of age. Current Interpretive Data was last revised on 2023. Testing performed by: [facility], [address] [place] [address]., [id number] Vaginal 06/26/2024 3:48 PM NEUROLOGY DIRECTOR 06/26/2024 11:17 PM NEUROLOGY DIRECTOR us Trena Peguero NP LAB MICROBIOLOGY - GENERAL O RDERABLES Final Result LETY SHARPE [address] [facility] Department [place] [address] [facility] from Last 3 Months or Most Recently Relevant to Health Maintenance Insurance [facility] Care Teams Target Trimmer Relationship Specialty Start Date End Date No, Physician PCP - General 10/14/20
--- OUTSIDE RECORDS SUMMARY | 2024-12-06 18:38 | XMS_ITS | Clinical Summary ---
Author Organization [facility] Address [address] [place] [address] Care Team Providers Care Refuse Laborer Name Role Phone Idalia Payne SILVA Primary Care Provider [phone] Allergies Active Allergy Reactions Criticality Noted Date Comments Amoxicillin Contact Dermatitis 12/02/2024 In mouth Medications dicyclomine (BENTYL) 20 MG tablet Take 1 tablet (20 mg total) by mouth every 6 (six) hours as needed. 20 tablet 5 Active ondansetron (ZOFRAN-ODT) 4 MG disintegrating tablet Take 1 tablet (4 mg total) by mouth every 8 (eight) hours as needed. 10 tablet 5 Active famotidine (PEPCID) 20 MG tablet Take 1 tablet (20 mg total) by mouth 2 (two) times daily as needed. 20 tablet 5 Active Encounters Date Type Department Care Team Description 12/02/2024 10:53 AM CDT - 12/02/2024 2:49 PM CDT Emergency [facility] [place] [address] Yenny Adam PA Abdominal Pain Discharge Disposition: Home or Self Care (Routine Discharge) 12/02/2024 Travel from Last 3 Months Social History Tobacco Use Types Packs/Day Years Used Date Smoking Tobacco: Every Day Cigarettes Electronic Cigarettes Smokeless Tobacco: Never Alcohol Use Standard Drinks/Week Comments Not Currently 0 (1 standard drink = 0.6 oz pur e alcohol) Comments No Sex and Gender Information Value Date Recorded Sex Assigned at Female 12/02/2024 10:45 AM CDT Legal Sex Female 9:01 PM CDT Gender Identity Not on file Sexual Orientation Not on file Last Filed Vital Signs Vital Sign Reading Time Taken Comments Blood Pressure 122/67 12/02/2024 2:44 PM CDT Pulse 63 12/02/2024 2:44 PM CDT Temperature 36.6 C (97.8 F) 12/02/2024 10:36 AM CDT Respiratory Rate 18 12/02/2024 2:44 PM CDT Oxygen Saturation 100% 12/02/2024 2:44 PM CDT Inhaled Oxygen Concentration - - Weight 63.5 kg (140 lb) 12/02/2024 10:36 AM CDT Height 162.6 cm (5' 4 ) 12/02/2024 10:36 AM CDT Body Mass Index 24.03 12/02/2024 10:36 AM CDT Plan of Treatment Health Maintenance Due Date Last Done Comments Cervical Cancer Screening Pap Smear (Age 21 to 29) Every 3 Years 2000 Cervical Cancer Screening 2000 Annual Physical 11/04/2003 Chlamydia Screening Females ages 16-24 2016 Hepatitis C 2018 Pneumococcal Vaccine: Pediatrics (0 to 5 Years) and At-Risk Patients (6 to 49 Years) (1 of 2 - PCV) 11/04/2019 DTaP, Tdap and Td Vaccines (7 - Td or Tdap) 03/20/2022 03/20/2012, 12/29/2005, 05/20/2002, Additional history exists COVID-19 Vaccine (2023- season) 2024 Hepatitis B Vaccines Completed 08/09/2001, 2000, 2000 HPV Vaccines Completed 03/08/2016, 10/12, 03/10/2015 Meningococcal Vaccine Completed 01/04/2018, 012 Meningococcal B Vaccine Aged Out No l onger eligible based on patient's age to complete this topic RSV Immunizations Under 20 Months Aged Out No longer eligible based on patient's age to complete this topic Procedures Procedure Name Priority Date/Time Associated Diagnosis Comments CT ABD+PEL W CON STAT 12/02/2024 1:21 PM CDT XR CHEST PA+LAT STAT 12/02/2024 12:54 PM CDT ECG 12-LEAD STAT 12/02/2024 11:23 AM CDT LYME DISEASE ANTIBODY STAT 12/02/2024 11:20 AM CDT POCT URINE (BACK OFFICE) STAT 12/02/2024 11:10 AM CDT HC URINALYSIS AUTO W/O MICRO STAT 12/02/2024 11:07 AM CDT LIPASE STAT 12/02/2024 11:04 AM CDT COMPREHENSIVE METABOLIC PANEL STAT 12/02/2024 11:04 AM CDT CBC W/DIFF AUTOMATED STAT 12/02/2024 11:04 AM CDT THYROXINE, FREE (FT4) STAT 12/02/2024 11:04 AM CDT THYROID STIM HORMONE TSH STAT 12/02/2024 11:04 AM CDT TROPONIN, QUANT STAT 12/02/2024 11:04 AM CDT MAGNESIUM STAT 12/02/2024 11:04 AM CDT D-DIMER, QUANTITATIVE STAT 12/02/2024 11:04 AM CDT from Last 3 Months Results * CT ABD+PEL W IV CON ONLY (12/02/2024 1:21 PM CDT) Anatomical Region Laterality Modality Abdomen Computed Tomogra phy 12/02/2024 1:39 PM CDT Impressions 12/02/2024 1:43 PM CDT =====IMPRESSION:===== 1. No acute inflammatory change, abscess nor ascites. 2. No evidence of mechanical bowel obstruction or perforation. 3. No evidence of ureteral stone nor hydronephrosis on either side. Ordered By: YENNY ADAM Interpreted By: Ashvin Adam MD, 12/02/2024 1:39 PM Narrative 12/02/2024 1:43 PM CDT [place] [id number] EXAMINATION: CT Abdomen and Pelvis with contrast EXAM DATE/TIME: 12/02/2024 1:14 PM REASON FOR EXAM: abdominal pain, negative test. COMPARISON: None TECHNIQUE: Computed tomography of the abdomen and pelvis was obtained after administration of intravenous contrast. Sagittal and coronal reconstruction A dose lowering technique was used for this procedure, which may include, but is not limited to, dose reduction technique, automated exposure control, iterative reconstruction, ALARA (As Low As Reasonably Achievable), or Image Gently techniques. FINDINGS: CT ABDOMEN: Visualized portions of the lung bases demonstrate no acute abnormality. No significant hiatal hernia. Liver is normal in size. No significant focal intrahepatic lesions are demonstrated. No evidence of cholelithiasis nor gallbladder wall thickening. No biliary duct dilatation. The spleen, pancreas, and the adrenal glands are unremarkable. Kidneys demonstrate no evidence of abnormal striated nephrogram nor acute perirenal inflammatory stranding or fluid. No evidence of ureteral stone nor hydronephrosis on either side. No evidence of significant solid renal mass lesion. There is no acute inflammatory change, abscess nor ascites. No evidence of mechanical bowel obstruction or perforation. No significant lymphadenopathy. Abdominal aorta and IVC are unremarkable. CT PELVIS: IUD present in normal position within the endometrial canal. There is a small rim-enhancing cyst in the left ovary likely representing a recently ruptured follicle. There is no significant pelvic mass or adenopathy. No acute inflammatory change, abscess nor ascites. Procedure Note Ashvin Adam MD - 12/02/2024 [facility] [address] [place], [place] [address] EXAMINATION: CT Abdomen and Pelvis with contrast EXAM DATE/TIME: 12/02/2024 1:14 PM REASON FOR EXAM: abdominal pain, negative test. COMPARISON: None TECHNIQUE: Computed tomography of the abdomen and pelvis was obtainedafter administration of intravenous contrast. Sagittal and coronalreconstruction A dose lowering technique was used for this procedure,which may include, but is not limited to, dose reduction technique,automated exposure control, iterative reconstruction, ALARA (As Low AsReasonably Achievable), or Image Gently techniques. FINDINGS: CT ABDOMEN: Visualized portions of the lung bases demonstrate no acuteabnormality. No significant hiatal hernia. Liver is normal in size. No significant focal intrahepatic lesions aredemonstrated. No evidence of cholelithiasis nor gallbladder wallthickening. No biliary duct dilatation. The spleen, pancreas, and the adrenal glands are unremarkable. Kidneys demonstrate no evidence of abnormal striated nephrogram nor acuteperirenal inflammatory stranding or fluid. No evidence of ureteral stonenor hydronephrosis on either side. No evidence of significant solid renalmass lesion. There is no acute inflammatory change, abscess nor ascites. No evidence ofmechanical bowel obstruction or perforation. No significantlymphadenopathy. Abdominal aorta and IVC are unremarkable. CT PELVIS: IUD present in normal position within the endometrial canal.There is a small rim-enhancing cyst in the left ovary likely representinga recently ruptured follicle. There is no significant pelvic mass oradenopathy. No acute inflammatory change, abscess nor ascites. =====IMPRESSION:===== 1. No acute inflammatory change, abscess nor ascites. 2. No evidence of mechanical bowel obstruction or perforation. 3. No evidence of ureteral stone nor hydronephrosis on either side. Ordered By: YENNY ADAM Interpreted By: Ashvin Adam MD, 12/02/2024 1:39 PM us Yenny Adam PA CT Final Result * XR CHEST PA+LAT (12/02/2024 12:54 PM CDT) Anatomical Region Laterality Modality Chest Radiographic Rosy ging 12/02/2024 12:5 7 PM CDT Impressions 12/02/2024 12:58 PM CDT IMPRESSION: No acute chest disease identified. Ordered By: YENNY ADAM Interpreted By: Jay Gutierrez MD, 12/02/2024 12:57 PM Narrative 12/02/2024 12:58 PM [address]T [address] [address] Examination: XR CHEST PA+LAT Exam time: 12/02/2024 12:40 PM Clinical history: Palpitations. Comparison: No comparison. Technique: 2 views of the chest. Findings: The cardiomediastinal silhouette appears normal. There is no pulmonary consolidation, pleural effusion or pneumothorax. The pulmonary vasculature appears normal. Procedure Note Jay Gutierrez MD - 12/02/[address] [address] Examination: XR CHEST PA+LAT Exam time: 12/02/2024 12:40 PM Clinical history: Palpitations. Comparison: No comparison. Technique: 2 views of the chest. Findings: The cardiomediastinal silhouette appears normal. There is no pulmonaryconsolidation, pleural effusion or pneumothorax. The pulmonary vasculatureappears normal. IMPRESSION: No acute chest disease identified. Ordered By: YENNY ADAM Interpreted By: Jay Gutierrez MD, 12/02/2024 12:57 PM us Yenny [facility] Final Result * ECG 12 lead (12/02/2024 11:23 AM CDT) 12/02/2024 11:2 3 AM CDT Narrative [facility] - 12/02/2024 10:[address] [facility] 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 : 2000 Requested By: YENNY ADAM Order Number: [id number] Reading MD: Edelmira Gage Measurements Intervals [place] Rate: 62 P: 34 WV: 148 QRS: 65 QRSD: 93 T: 33 QT: 376 QTc: 383 Interpretive Statements SINUS RHYTHM No previous ECG available for comparison us Yenny [facility] ECG ORDERABLES Final Result [facility] * LYME DISEASE ANTIBODY (12/02/2024 11:20 AM CDT) LYME IGG/IGM <0.90 <0.90 Index 12/04/2024 6:26 PM CDT [employer] [facility]ERSEN Comment: Reference ranges: Index Interpretation ----- <0.90 Negative 0.90-1.09 Equivocal >1.09 Positive As recommended by the Food and Drug Administration (FDA), all samples with positive or equivocal results in a Borrelia burgdorferi antibody screen will be tested using a blot method. Positive or equivocal screening test results should not be interpreted as truly positive until verified as such using a supplemental assay (e.g., B. burgdorferi blot). The screening test and/or blot for B. burgdorferi antibodies may be falsely negative in early stages of Lyme disease, including the period when erythema migrans is apparent. The Code of [place], Article 1 of Chapter 5 of Title 32.1, section 32.1-137.06, requires that the following language must be included on every Lyme disease test report issued by a [place] laboratory: Patients undergoing a Lyme disease test should be aware that Lyme disease tests vary and may produce results that are inaccurate. This means a patient may not be able to rely on a positive or negative result. Health care providers are encouraged to discuss Lyme disease test results with the patient for whom the test was ordered. Test Performed by [employer] [place], [employer] [facility], [address] [place] [address] Mike Bruce M.D., Ph.D., Director of Laboratories , [facility] [id number] 12/02/2024 11:2 0 AM CDT [facility] Final Result [employer] , * POCT urine (12/02/2024 11:10 AM CDT) URINE HCG TEST NEGATIVE Internal Control: VALID 12/02/2024 11:1 0 AM CDT Yenny [facility] POINT OF CARE TEST ORDERABLES Final Result * URINALYSIS (12/02/2024 11:07 AM CDT) SPECIMEN TYPE URINE CLEAN CATCH 12/02/2024 11:08 AM CDT [facility] COLOR (U) COLORLESS 12/02/2024 11:17 AM CDT [facility] TRANSPARENCY CLEAR 12/02/2024 11:17 AM CDT [facility] SPECIFIC GRAVITY (U) 1.008 1.001 - 1.030 12/02/2024 11:17 AM CDT [facility] U PH 6.0 5.0 - 9.0 12/02/2024 11:17 AM CDT [facility] LEUKOCYTES (U) NEGATIVE NEGATIVE 12/02/2024 11:17 AM CDT [facility] NITRITES NEGATIVE NEGATIVE 12/02/2024 11:17 AM T [facility] PROTEIN RANDOM (U) NEGATIVE <30 MG/DL 12/02/2024 11:17 AM CDT [facility] GLUCOSE (U) NORMAL NORMAL MG/DL 12/02/2024 11:17 AM T [facility] KETONES MG/DL (U) NEGATIVE NEGATIVE MG/DL 12/02/2024 11:17 AM T [facility] UROBILINOGEN NORMAL NORMAL MG/DL 12/02/2024 11:17 AM CDT [facility] BILIRUBIN (U) NEGATIVE NEGATIVE MG/DL 12/02/2024 11:17 AM CDT [facility] BLOOD (U) NEGATIVE NEGATIVE 12/02/2024 11:17 AM T [facility] URINE SPECIMEN OBTAINED BY CLEAN CATCH PROCEDURE / Unknown 12/02/2024 11:07 AM CDT us Yenny [facility] URINE ORDERABLES Final Result [facility] [address] [place] [address], [place] [phone] * (ABNORMAL) COMPREHENSIVE METABOLIC PANEL (12/02/2024 11:04 AM CDT) [facility] GLUCOSE 105(H) 70 - 99 MG/DL 12/02/2024 11:44 AM CDT [facility] BUN 13 7 - 18 MG/DL 12/02/2024 11:44 AM CDT [facility] CREATININE S/P/B 0.72 0.55 - 1.02 MG/DL 12/02/2024 11:44 AM CDT [facility] SODIUM S/P/B 138 136 - 145 MMOL/L 12/02/2024 11:44 AM CDT [facility] POTASSIUM S/P/B 3.7 3.5 - 5.1 MMOL/L 12/02/2024 11:44 AM CDT [facility] CHLORIDE S/P/B 107 97 - 115 MMOL/L 12/02/2024 11:44 AM CDT [facility] CO2 24.7 21 - 32 MMOL/L 12/02/2024 11:44 AM CDT [facility] CALCIUM S/P/B 9.1 8.5 - 10.1 MG/DL 12/02/2024 11:44 AM CDT [facility] BILIRUBIN TOTAL S/P/B 0.7 0.2 - 1.2 MG/DL 12/02/2024 11:44 AM CDT [facility] Comment: THIS ASSAY IS NOT RECOMMENDED FOR PATIENTS UNDERGOING TREATMENT WITH ELTROMBOPAG DUE TO THE POTENTIAL FOR FALSELY ELEVATED RESULTS. TOTAL PROTEIN S/P/B 7.3 6.4 - 8.2 G/DL 12/02/2024 11:44 AM CDT [facility] ALBUMIN S/P/B 4.0 3.4 - 5.0 G/DL 12/02/2024 11:44 AM CDT [facility] AST 15 15 - 37 U/L 12/02/2024 11:44 AM CDT [facility] ALT 22 14 - 55 U/L 12/02/2024 11:44 AM CDT [facility] ALKALINE PHOSPHATASE S/P/B 63 50 - 136 U/L 12/02/2024 11:44 AM CDT [facility] ANION GAP 6.3 2 - 10 MMOL/L 12/02/2024 11:44 AM CDT [facility] BUN CREATININE RATIO 18.1 6 - 26 12/02/2024 11:44 AM CDT [facility] A/G RATIO 1.2 1.0 - 2.0 RATIO 12/02/2024 11:44 AM T [facility] GFR ESTIMATE >90 >90 ML/MIN/1.7 3 M2 12/02/2024 11:44 AM CDT [facility] Comment: NOTE: eGFR is not calculated for patients <18 years of age or gender unknown. This is an estimated GFR calculation using the new CKD EPI creatinine equation without race and so does not require a correction factor for race. This estimated GFR should not be used for calculating drug doses. 12/02/2024 11:0 4 AM CDT us Yenny [facility] Final Result [facility] [address] [place] [address], * D-DIMER, QUANTITATIVE (12/02/2024 11:04 AM CDT) D-DIMER 433 0 - 500 ng{FEU}/mL 12/02/2024 11:48 AM CDT [facility] Comment: D-Dimer values less than or equal to 500 ng/mL FEU have a negative predictive value of >95% for exclusion of deep vein thrombosis and pulmonary embolism. In patients over 50 (who tend to have higher normal baseline D-Dimer values), recent studies suggest age-adjusted D-Dimer cutoff values (calculated as: age [years] x 10 ng/mL) result in equivalent outcomes and no additional false negative findings. 12/02/2024 11:0 4 AM CDT us Yenny [facility] Final Result [facility] [address] [place] [address], * (ABNORMAL) CBC W/DIFF AUTOMATED (12/02/2024 11:04 AM CDT) WBC 10.41 4.5 - 11.0 x10'3/uL 12/02/2024 11:17 AM CDT [facility] RBC 4.52 4.20 - 5.40 x10'6/uL 12/02/2024 11:17 AM CDT [facility] HGB 13.7 12.0 - 16.0 G/DL 12/02/2024 11:17 AM CDT [facility] HCT 41.2 38.0 - 48.0 % 12/02/2024 11:17 AM CDT [facility] MCV 91.2 81.0 - 99.0 FL 12/02/2024 11:17 AM CDT [facility] MCH 30.3 27.0 - 31.0 PG 12/02/2024 11:17 AM CDT [facility] MCHC 33.3 32.0 - 36.0 G/DL 12/02/2024 11:17 AM CDT [facility] RDW 13.1 11.5 - 14.5 % 12/02/2024 11:17 AM CDT [facility] PLT 315 130 - 400 x10'3/uL 12/02/2024 11:17 AM T [facility] MPV 9.5 9.3 - 12.2 FL 12/02/2024 11:17 AM T [facility] DIFFERENTIAL TYPE MANUAL DIFFERENTIAL 12/02/2024 11:42 AM CDT [facility] SEG NEUTROPHILS 51 % 11:42 AM T [facility] LYMPHOCYTES 28 % 12/02/2024 11:42 AM T [facility] MONOCYTES 2 % 12/02/2024 11:42 AM T [facility] EOSINOPHILS 18 % 12/02/2024 11:42 AM T [facility] BASOPHILS 1 % 12/02/2024 11:42 AM T [facility] ABS. NEUTROPHILS 5.31 1.80 - 7.70 x10'3/uL 12/02/2024 11:42 AM T [facility] ABS. LYMPHOCYTES 2.91 1.00 - 4.80 x10'3/uL 12/02/2024 11:42 AM T [facility] ABS. MONOCYTES 0.21(L) 0.24 - 0.86 x10'3/uL 12/02/2024 11:42 AM T [facility] ABS. EOSINOPHILS 1.87(H) 0.04 - 0.36 x10'3/uL 12/02/2024 11:42 AM T [facility] ABS. BASOPHILS 0.10(H) 0.01 - 0.08 x10'3/uL 12/02/2024 11:42 AM T [facility] RBC MORPHOLOGY RBC MORPHOLOGY APPEARS NORMAL. SLIDE REVIEWED. 12/02/2024 11:42 AM CDT [facility] PLT EST. ADEQUATE 12/02/2024 11:42 AM CDT [facility] 12/02/2024 11:0 4 AM CDT [facility] Final Result Performing Organization Address [facility] Co de Phone Number [facility] [address] [place] [address], [place] [phone] * THYROXINE, FREE (FT4) (12/02/2024 11:04 AM CDT) Pathologist [facility] FREE T4 1.05 0.76 - 1.46 NG/DL 12/02/2024 11:44 AM CDT [facility] 12/02/2024 11:0 4 AM CDT Yenny [facility] Final Result Performing Organization Address [facility] Co de Phone Number [facility] [address] [place] [address], [place] [phone] * TROPONIN, QUANT (12/02/2024 11:04 AM CDT) Pathologist [facility] TROPONIN I HIGH SENSITIVITY 8 <54 ng/L 12/02/2024 11:44 AM CDT [facility] Comment: HIGH DOSES OF BIOTIN, TROPONIN-SPECIFIC AUTOANTIBODIES, AND ANTIBODY THERAPY CONTAINING HAMA MAY INTERFERE WITH THIS TEST RESULT. CORRELATION TO CLINICAL HISTORY AND PRESENTATION RECOMMENDED. 12/02/2024 11:0 4 AM CDT Yenny [facility] Final Result Performing Organization Address City/[facility]/ZIP Co de Phone Number [facility] [address] [place] [address], [place] [phone] * THYROID STIM HORMONE TSH (12/02/2024 11:04 AM CDT) TSH 2.240 0.358 - 3.74 uIU/ML 12/02/2024 11:44 AM CDT [facility] Comment: HIGH DOSES OF BIOTIN MAY INTERFERE WITH THIS TEST RESULT. CORRELATION TO CLINICAL HISTORY AND PRESENTATION RECOMMENDED. 12/02/2024 11:0 4 AM CDT [facility] Final Result [facility] [address] [place] [address], [place] [phone] * MAGNESIUM (12/02/2024 11:04 AM CDT) MAGNESIUM 2.1 1.8 - 2.4 MG/DL 12/02/2024 11:44 AM CDT [facility] 12/02/2024 11:0 4 AM CDT Y[facility] Final Result [facility] [address] [place] [address], [place] [phone] * LIPASE (12/02/2024 11:04 AM CDT) LIPASE 41 13 - 75 UNITS/L 12/02/2024 11:44 AM CDT [facility] 12/02/2024 11:0 4 AM CDT us Yenny [facility] Final Result [facility] [address] [place] [address], from Last 3 Months Insurance [employer] Care Teams Refuse Laborer Relationship Specialty Start Date End Date Idalia Payne NP [address] [place] [phone] PCP - General NURSE PRACTITIONER 12/02/24
--- OUTSIDE RECORDS SUMMARY | 2024-12-06 18:38 | XMS_ITS | Clinical Summary ---
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
[2024-12-06 18:44] VITALS: BP 128/82; PULSE 68; RESP 16; TEMP 36.3; O2SAT 100
--- OUTSIDE RECORDS SUMMARY | 2024-12-06 19:08 | XMS_ITS | Referral Summary ---
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 Not on file Not on file Last Filed Vital Signs Vital Sign [place] Time Taken Comments Blood Pressure 110/70 06/26/2024 2:54 PM WAX BLENDER Pulse 64 05/14/2019 1:19 AM CDT Temperature 36.5 C (97.7 F) 05/14/2019 1:19 AM CDT Respiratory Rate 18 05/14/2019 1:19 AM CDT Oxygen Saturation 100% 05/13/2019 11: 07 PM CDT Inhaled Oxygen Concentration - - Weight 69.3 kg (152 lb 12.8 oz) 06/26/2024 2:54 PM WAX BLENDER Height 162.6 cm (5' 4.02 ) 06/26/2024 2:54 PM CS T Body Mass Index 26.21 06/26/2024 2:54 PM WAX BLENDER Plan of Treatment Not on file Procedures Procedure Name Priority Date/Time Associated Diagnosis Comments N. GONORRHOEAE/C. TRACHOMATIS AMPLIFICATION Routine 06/26/2024 3:48 PM WAX BLENDER Well woman exam with routine gynecological exam from Last 3 Months or Most Recently Relevant to Health Maintenance Results * N. gonorrhoeae/C. trachomatis Amplification Vaginal (06/26/2024 3:48 PM WAX BLENDER) C. trachomatis Not Detected [facility] Comment:Testing performed by : [facility], [address] [place]., [address] N. gonorrhoeae Not Detected LETY SHARPE Comment: Interpretive Data This assay detects Chlamydia trachomatis and Neisseria gonorrhoeae by nucleic acid amplification testing (NAAT). This assay has been cleared by the [place] Food and Drug administration. The performance characteristics of this test have been verified by the [facility] Molecular Infectious Disease laboratory. The performance characteristics of this test have not been evaluated in individuals less than 14 years of age. Current Interpretive Data was last revised on 2023. Testing performed by: [facility], [address] [place]., [address] Vaginal 06/26/2024 3:48 PM WAX BLENDER 06/26/2024 11:17 PM WAX BLENDER us Trena Peguero NP LAB MICROBIOLOGY - GENERAL O RDERABLES Final Result LETY [address] [facility] Department [place] [address] [facility] from Last 3 Months or Most Recently Relevant to Health Maintenance Insurance [facility] Care Teams Security System Sales Consultant Relationship Specialty Start Date End Date No, Physician PCP - General 10/14/20
--- OUTSIDE RECORDS SUMMARY | 2024-12-06 19:08 | XMS_ITS | Clinical Summary ---
Author Organization [facility] Address [address] [place] [address] Care Team Providers Care Family Welfare Social Work Professor Name Role Phone Idalia Payne SILVA Primary Care Provider [phone] Allergies Active Allergy Reactions Criticality Noted Date [...] CDT - 12/02/2024 2:49 PM CDT Emergency [facility] [place] [address] Yenny Adam PA Abdominal Pain Discharge Disposition: [...] 1:39 PM Narrative 12/02/2024 1:43 PM CDT [place] [id number] EXAMINATION: CT Abdomen and Pelvis with contrast [...] Procedure Note Ashvin Adam MD - 12/02/2024 [facility] [address] [place], [place] [address] EXAMINATION: CT Abdomen and Pelvis with contrast [...] 12:57 PM Narrative 12/02/2024 12:58 PM CDT [address] [address] Examination: XR CHEST PA+LAT Exam time: 12/02/2024 12:40 PM Clinical history: Palpitations. Comparison: No comparison. Technique: 2 views of the chest. Findings: The cardiomediastinal silhouette appears normal. There is no pulmonary consolidation, pleural effusion or pneumothorax. The pulmonary vasculature appears normal. Procedure Note Jay Gutierrez MD - 12/02/[address] [address] Examination: XR CHEST PA+LAT Exam time: 12/02/2024 [...] CDT) 12/02/2024 11:2 3 AM CDT Narrative [facility] RAD - 12/02/2024 10:[address] [facility] [address] Test Date: 2024-12-02 Pat Name: KATRIN VIEYRA Department: 41 Room: EXAM22 Gender: Female Driver Operator: [id number] : 2000 Requested By: YENNY ADAM Order Number: [id number] [place] MD: Edelmira Gage Measurements Intervals [place] Rate: 62 P: 34 CA: 148 QRS: 65 QRSD: 93 T: 33 QT: 376 QTc: 383 Interpretive Statements SINUS RHYTHM No previous ECG available for comparison Procedure Note Edelmira Gage MD - 12/02/[address] [facility] [address] Test Date: 2024-12-02 Pat Name: KATRIN VIEYRA Department: 41 Room: EXAM22 Gender: Female Driver Operator: [id number] : 2000 Requested By: YENNY ADAM Order Number: [id number] [place] MD: Edelmira Gage Measurements Intervals [place] Rate: 62 P: 34 CA: 148 QRS: 65 QRSD: 93 T: 33 QT: 376 QTc: 383 Interpretive Statements SINUS RHYTHM No previous ECG available for comparison us Yenny HERNÁNDEZ ECG ORDERABLES Final Result [facility] RAD * LYME DISEASE ANTIBODY (12/02/2024 11:20 AM CDT) LYME IGG/IGM <0.90 <0.90 Index 12/04/2024 6:26 PM CDT [employer] NINO PETERSEN Comment: Reference ranges: Index Interpretation [...] Lyme disease test report issued by a [place] laboratory: Patients undergoing a Lyme disease test should be aware that Lyme disease tests vary and may produce results that are inaccurate. This means a patient may not be able to rely on a positive or negative result. Health care providers are encouraged to discuss Lyme disease test results with the patient for whom the test was ordered. Test Performed by [employer] [place] [facility], [address] [place] [address] Mike Bruce M.D., Ph.D., Director of Laboratories , [facility] [id number] 12/02/2024 11:2 0 AM CDT Yenny HERNÁNDEZ LABORATORY Final Result [employer] , * POCT urine (12/02/2024 11:10 AM CDT) URINE HCG TEST NEGATIVE Internal Control: VALID 12/02/2024 11:1 0 AM CDT Yenny HERNÁNDEZ POINT OF CARE TEST ORDERABLES Final Result * URINALYSIS (12/02/2024 11:07 AM CDT) SPECIMEN TYPE URINE CLEAN CATCH 12/02/2024 11:08 AM CDT [facility] COLOR (U) COLORLESS 12/02/2024 11:17 AM CDT [facility] TRANSPARENCY CLEAR 12/02/2024 11:17 AM CDT [facility] SPECIFIC GRAVITY (U) 1.008 1.001 - 1.030 12/02/2024 11:17 AM CDT [facility] U PH 6.0 5.0 - 9.0 12/02/2024 11:17 AM CDT [facility] LEUKOCYTES (U) NEGATIVE NEGATIVE 12/02/2024 11:17 AM CDT [facility] NITRITES NEGATIVE NEGATIVE 12/02/2024 11:17 AM T [facility] PROTEIN RANDOM (U) NEGATIVE <30 MG/DL 12/02/2024 11:17 AM CDT [facility] GLUCOSE (U) NORMAL NORMAL MG/DL 12/02/2024 11:17 AM T [facility] KETONES MG/DL (U) NEGATIVE NEGATIVE MG/DL 12/02/2024 11:17 AM T [facility] UROBILINOGEN NORMAL NORMAL MG/DL 12/02/2024 11:17 AM CDT [facility] BILIRUBIN (U) NEGATIVE NEGATIVE MG/DL 12/02/2024 11:17 AM CDT [facility] BLOOD (U) NEGATIVE NEGATIVE 12/02/2024 11:17 AM T [facility] URINE SPECIMEN OBTAINED BY CLEAN CATCH PROCEDURE / Unknown 12/02/2024 11:07 AM CDT us Yenny HERNÁNDEZ URINE ORDERABLES Final Result [facility] [address] [place] [address], [place] [phone] * (ABNORMAL) COMPREHENSIVE METABOLIC PANEL (12/02/2024 11:04 AM CDT) [facility] GLUCOSE 105(H) 70 - 99 MG/DL 12/02/2024 11:44 AM CDT [facility] BUN 13 7 - 18 MG/DL 12/02/2024 11:44 AM CDT [facility] CREATININE S/P/B 0.72 0.55 - 1.02 MG/DL 12/02/2024 11:44 AM CDT [facility] SODIUM S/P/B 138 136 - 145 MMOL/L 12/02/2024 11:44 AM CDT [facility] POTASSIUM S/P/B 3.7 3.5 - 5.1 MMOL/L 12/02/2024 11:44 AM CDT [facility] CHLORIDE S/P/B 107 97 - 115 MMOL/L 12/02/2024 11:44 AM CDT [facility] CO2 24.7 21 - 32 MMOL/L 12/02/2024 11:44 AM CDT [facility] CALCIUM S/P/B 9.1 8.5 - 10.1 MG/DL 12/02/2024 11:44 AM CDT [facility] BILIRUBIN TOTAL S/P/B 0.7 0.2 - 1.2 MG/DL 12/02/2024 11:44 AM CDT [facility] Comment: THIS ASSAY IS NOT RECOMMENDED FOR PATIENTS UNDERGOING TREATMENT WITH ELTROMBOPAG DUE TO THE POTENTIAL FOR FALSELY ELEVATED RESULTS. TOTAL PROTEIN S/P/B 7.3 6.4 - 8.2 G/DL 12/02/2024 11:44 AM CDT [facility] ALBUMIN S/P/B 4.0 3.4 - 5.0 G/DL 12/02/2024 11:44 AM CDT [facility] AST 15 15 - 37 U/L 12/02/2024 11:44 AM CDT [facility] ALT 22 14 - 55 U/L 12/02/2024 11:44 AM CDT [facility] ALKALINE PHOSPHATASE S/P/B 63 50 - 136 U/L 12/02/2024 11:44 AM CDT [facility] ANION GAP 6.3 2 - 10 MMOL/L 12/02/2024 11:44 AM CDT [facility] BUN CREATININE RATIO 18.1 6 - 26 12/02/2024 11:44 AM CDT [facility] A/G RATIO 1.2 1.0 - 2.0 RATIO 12/02/2024 11:44 AM T [facility] GFR ESTIMATE >90 >90 ML/MIN/1.7 3 M2 12/02/2024 11:44 AM CDT [facility] Comment: NOTE: eGFR is not calculated for patients <18 years of age or gender unknown. This is an estimated GFR calculation using the new CKD EPI creatinine equation without race and so does not require a correction factor for race. This estimated GFR should not be used for calculating drug doses. 12/02/2024 11:0 4 AM CDT us Yenny HERNÁNDEZ LABORATORY Final Result [facility] [address] [place] [address], * D-DIMER, QUANTITATIVE (12/02/2024 11:04 AM CDT) D-DIMER 433 0 - 500 ng{FEU}/mL 12/02/2024 11:48 AM CDT [facility] Comment: D-Dimer values less than or [...] CDT us Yenny HERNÁNDEZ LABORATORY Final Result [facility] [address] [place] [address], * (ABNORMAL) CBC W/DIFF AUTOMATED (12/02/2024 11:04 AM CDT) WBC 10.41 4.5 - 11.0 x10'3/uL 12/02/2024 11:17 AM CDT [facility] RBC 4.52 4.20 - 5.40 x10'6/uL 12/02/2024 11:17 AM CDT [facility] HGB 13.7 12.0 - 16.0 G/DL 12/02/2024 11:17 AM CDT [facility] HCT 41.2 38.0 - 48.0 % 12/02/2024 11:17 AM CDT [facility] MCV 91.2 81.0 - 99.0 FL 12/02/2024 11:17 AM CDT [facility] MCH 30.3 27.0 - 31.0 PG 12/02/2024 11:17 AM CDT [facility] MCHC 33.3 32.0 - 36.0 G/DL 12/02/2024 11:17 AM CDT [facility] RDW 13.1 11.5 - 14.5 % 12/02/2024 11:17 AM CDT [facility] PLT 315 130 - 400 x10'3/uL 12/02/2024 11:17 AM T [facility] MPV 9.5 9.3 - 12.2 FL 12/02/2024 11:17 AM T [facility] DIFFERENTIAL TYPE MANUAL DIFFERENTIAL 12/02/2024 11:42 AM CDT [facility] SEG NEUTROPHILS 51 % 11:42 AM T [facility] LYMPHOCYTES 28 % 12/02/2024 11:42 AM T [facility] MONOCYTES 2 % 12/02/2024 11:42 AM T [facility] EOSINOPHILS 18 % 12/02/2024 11:42 AM T [facility] BASOPHILS 1 % 12/02/2024 11:42 AM T [facility] ABS. NEUTROPHILS 5.31 1.80 - 7.70 x10'3/uL 12/02/2024 11:42 AM T [facility] ABS. LYMPHOCYTES 2.91 1.00 - 4.80 x10'3/uL 12/02/2024 11:42 AM T [facility] ABS. MONOCYTES 0.21(L) 0.24 - 0.86 x10'3/uL 12/02/2024 11:42 AM T [facility] ABS. EOSINOPHILS 1.87(H) 0.04 - 0.36 x10'3/uL 12/02/2024 11:42 AM T [facility] ABS. BASOPHILS 0.10(H) 0.01 - 0.08 x10'3/uL 12/02/2024 11:42 AM T [facility] RBC MORPHOLOGY RBC MORPHOLOGY APPEARS NORMAL. SLIDE REVIEWED. 12/02/2024 11:42 AM CDT [facility] PLT EST. ADEQUATE 12/02/2024 11:42 AM CDT [facility] 12/02/2024 11:0 4 AM CDT Yenny HERNÁNDEZ LABORATORY Final Result Performing Organization Address City/[facility] Co de Phone Number [facility] [address] [place] [address], [place] [phone] * THYROXINE, FREE (FT4) (12/02/2024 11:04 AM CDT) Pathologist [facility] FREE T4 1.05 0.76 - 1.46 NG/DL 12/02/2024 11:44 AM CDT [facility] 12/02/2024 11:0 4 AM CDT Yenny HERNÁNDEZ LABORATORY Final Result Performing Organization Address [facility] Co de Phone Number [facility] [address] [place] [address], [place] [phone] * TROPONIN, QUANT (12/02/2024 11:04 AM CDT) Pathologist [facility] TROPONIN I HIGH SENSITIVITY 8 <54 ng/L 12/02/2024 11:44 AM CDT [facility] Comment: HIGH DOSES OF BIOTIN, TROPONIN-SPECIFIC AUTOANTIBODIES, AND ANTIBODY THERAPY CONTAINING HAMA MAY INTERFERE WITH THIS TEST RESULT. CORRELATION TO CLINICAL HISTORY AND PRESENTATION RECOMMENDED. 12/02/2024 11:0 4 AM CDT Yenny HERNÁNDEZ LABORAT[facility] Final Result Performing Organization Address City/[facility]/ZIP Co de Phone Number [facility] [address] [place] [address], [place] [phone] * THYROID STIM HORMONE TSH (12/02/2024 11:04 AM CDT) TSH 2.240 0.358 - 3.74 uIU/ML 12/02/2024 11:44 AM CDT [facility] Comment: HIGH DOSES OF BIOTIN MAY INTERFERE WITH THIS TEST RESULT. CORRELATION TO CLINICAL HISTORY AND PRESENTATION RECOMMENDED. 12/02/2024 11:0 4 AM CDT Yenny HERNÁNDEZ LABORAT[facility] Final Result [facility] [address] [place] [address], [place] [phone] * MAGNESIUM (12/02/2024 11:04 AM CDT) MAGNESIUM 2.1 1.8 - 2.4 MG/DL 12/02/2024 11:44 AM CDT [facility] 12/02/2024 11:0 4 AM CDT Yenny HERNÁNDEZ [facility]OR[facility] Final Result [facility] [address] [place] [address], [place] [phone] * LIPASE (12/02/2024 11:04 AM CDT) LIPASE 41 13 - 75 UNITS/L 12/02/2024 11:44 AM CDT [facility] 12/02/2024 11:0 4 AM CDT us Yenny HERNÁDNEZ LABORATORY Final Result [facility] [address] [place] [address], from Last 3 Months Insurance [employer] Care Teams Family Welfare Social Work Professor Relationship Specialty Start Date End Date Idalia Payne NP [address] [place] [phone] PCP - General NURSE PRACTITIONER 12/02/24
--- OUTSIDE RECORDS SUMMARY | 2024-12-06 19:08 | XMS_ITS | Encounter Summary ---
Author Organization [employer] Address 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
--- OUTSIDE RECORDS SUMMARY | 2024-12-06 19:08 | XMS_ITS | Encounter Summary ---
Author Organization [employer] Address 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
--- OUTSIDE RECORDS SUMMARY | 2024-12-06 19:08 | XMS_ITS | Clinical Summary ---
Author Organization [facility] Address [address] [place] [address] Care Team Providers Care Timber Trimmer Name Role Phone No, Physician Primary Care Provider Allergies Active Allergy Reactions Criticality Noted Date [...] on file Legal Sex Female 12:36 AM EFFICIENCY ANALYST Gender Identity Not on file Sexual Orientation [...] Comments Blood Pressure 110/70 06/26/2024 2:54 PM EFFICIENCY ANALYST Pulse 64 05/14/2019 1:19 AM CDT Temperature 36.5 C (97.7 F) 05/14/2019 1:19 AM CDT Respiratory Rate 18 05/14/2019 1:19 AM CDT Oxygen Saturation 100% 05/13/2019 11: 07 PM CDT Inhaled Oxygen Concentration - - Weight 69.3 kg (152 lb 12.8 oz) 06/26/2024 2:54 PM EFFICIENCY ANALYST Height 162.6 cm (5' 4.02 ) 06/26/2024 2:54 PM CS T Body Mass Index 26.21 06/26/2024 2:54 PM EFFICIENCY ANALYST Plan of Treatment Health Maintenance Due Date [...] GONORRHOEAE/C. TRACHOMATIS AMPLIFICATION Routine 06/26/2024 3:48 PM EFFICIENCY ANALYST Well woman exam with routine gynecological exam from Last 3 Months or Most Recently Relevant to Health Maintenance Results * N. gonorrhoeae/C. trachomatis Amplification Vaginal (06/26/2024 3:48 PM EFFICIENCY ANALYST) Pathologist [facility] C. trachomatis Not Detected [facility] Comment:Testing performed by : [facility], [address] [place] [address]., [id number] N. gonorrhoeae Not Detected LETY SHARPE Comment: Interpretive Data This assay detects Chlamydia trachomatis and Neisseria gonorrhoeae by nucleic acid amplification testing (NAAT). This assay has been cleared by the [place] Food and Drug administration. The performance characteristics of this test have been verified by the [facility] Molecular Infectious Disease laboratory. The performance characteristics of this test have not been evaluated in individuals less than 14 years of age. Current Interpretive Data was last revised on 2023. Testing performed by: [facility], [address] [place] [address]., [address] Vaginal 06/26/2024 3:48 PM EFFICIENCY ANALYST 06/26/2024 11:17 PM EFFICIENCY ANALYST us Trena Peguero NP LAB MICROBIOLOGY - GENERAL O RDERABLES Final Result LETY SHARPE [address] [facility] Department [place] [address] [facility] from Last 3 Months or Most Recently Relevant to Health Maintenance Insurance [facility] Care Teams Timber Trimmer Relationship Specialty Start Date End Date No, Physician PCP - General 10/14/20
--- OUTSIDE RECORDS SUMMARY | 2024-12-06 19:08 | XMS_ITS | Clinical Summary ---
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
--- OUTSIDE RECORDS SUMMARY | 2024-12-06 19:08 | XMS_ITS | Clinical Summary ---
Author Organization [facility] Address [address] [facility] [place] [address] Care Team Providers Care Furniture Removalist Name Role Phone Loyda Alexandre MD Unavailable [phone] Loyda Alexandre MD Primary Care Provider [phone] [facility],non-owned Affiliates and Associated Physician Practices is amultiple site organization consisting of ambulatory clinics and hospital sitesin [place], [place], [place] and [place]. This disclosure is being madepursuant to the Care Everywhere program and may not contain all information available regarding this patient. Last updated 18.[facility] Allergies No known active allergies Medications * [...] on file Legal Sex Female 6:48 AM FENCE REPAIRMAN Gender Identity Not on file Sexual Orientation [...] 1:40 PM CDT) Ester Hughes RN Insurance [facility] Care Teams Furniture Removalist Relationship Specialty Start Date End Date Loyda Alexandre MD PCP - Pediatrics 08/12/09 Loyda Alexandre MD PCP - General Pediatrics 02/28/12
[2024-12-06 19:25] LABS: BEDSIDEPREGUCG Negative (Negative)
[2024-12-06 19:26] LABS: Hematocrit 37.9 % (37.0-47.0); Hemoglobin 12.2 g/dL (12.0-15.0); Mean Corpuscular HGB Conc 32.2 g/dl (32-36); Mean Corpuscular Hemoglobin 29.8 pg (26-34); Mean Corpuscular Volume 92.4 fl (80-100); Mean Platelet Volume 9.4 fl (7.4-10.4); Platelet Count Result 262 k/mm3 (150-375); Red Cell Distribution Width 12.8 % (11.5-14.5); White Blood Count 8.9 K/mm3 (4.5-10.0)
[2024-12-06 19:27] LABS: Add Urine Microscopic? NO; Appearance Urine Clear (Clear); Bilirubin Urine Negative (Negative); Blood Urine Negative (Negative); Color Urine Yellow (Yellow); Glucose Urine UA Negative (Negative); Ketones Urine Negative (Negative); Leukocyte Esterase Ur Negative LEU/UL (Negative); Nitrate Urine Negative (Negative); Protein Urine Negative (Negative); Specific Grav Ur 1.011 (1.001-1.035); pH Urine 6.5 (5.0-9.0)
[2024-12-06 19:37] LABS: Alanine Aminotransferase 15 U/L (6-35); Albumin Level 4.3 g/dL (3.5-5.1); Alkaline Phosphatase 50 U/L (38-126); Anion Gap 8 mmol/L (4-12); Aspartate Amino Transferase 26 U/L (14-36); Bilirubin,Total 1.2 mg/dL (0.2-1.3); Blood Urea Nitrogen 14 mg/dL (7-17); Carbon Dioxide 28 mmol/L (22-30); Chloride 102 mmol/L (98-107); Estimated CRCL calculation 102 ml/min; Estimated Glomerular Filt Rate > 60; Glucose 89 mg/dL (65-110); Lipase 100 U/L (23-300); Potassium 3.9 mmol/L (3.4-5.0); Sodium 138 mmol/L (137-145)
--- NOTE | 2024-12-06 19:39 | ED.ABDPAIN ---
HPI - Abdominal Pain General Chief Complaint: Abdominal Pain Stated Complaint: abd pain Time Seen by Provider: 12/06/24 18:48 History of Present Illness HPI narrative: 24-year-old female with no pertinent past medical history presenting to the emergency room with chief complaint of lower abdominal pain. She states she was seen several days ago at another facility and got CT scans, ultrasound and laboratory assessment. They diagnosed her with a ruptured ovarian cyst and sent her home. She states that this is not what she thinks it is as concerned about her appendix. She states the pain started in her right lower quadrant but is now generalized. Denies any fever or chills. No nausea or vomiting. No diarrhea. She is able tolerate oral intake. She is here for a 2nd opinion. Unable to see outside records from other center. Related Data Allergies Allergy/AdvReac Type Severity Reaction Status Date / Time amoxicillin (From Amoxil) Allergy Other Verified 12/06/24 18:36 Review of Systems Review of Systems: As reviewed above in HPI [facility] Past Medical History Medical History UTI (urinary tract infection) Family History Family History Other No acute medical problems Social History Social History Smoking status: Current every day smoker Alcohol intake: never Exam Narrative: GENERAL: [Well-appearing, well-nourished, and in no acute distress.] HEAD: [Normocephalic, atraumatic.] EYES: [PERRLA and EOMI.] ENT: Nares clear, no rhinorrhea or epistaxis. Mucous membranes moist. NECK: Supple. CHEST: [Clear to auscultation. No respiratory distress.] HEART: [Regular rate and rhythm]. No murmur heard. [Normal peripheral pulses.] ABDOMEN: [Soft, nondistended], mildly tender to palpation the right lower quadrant but no signs of rebound, guarding, peritonitis EXTREMITIES: Normal range of motion. [No edema.] SKIN: Warm, dry, no rash. NEURO: [No focal deficits]. Alert and oriented [x3.] PSYCH: [Normal mood and affect.] Course Vital Signs Vital signs: Vital Signs Temperature 36.3 C L 12/06/24 18:44 Pulse Rate 68 12/06/24 18:44 Respiratory Rate 16 12/06/24 18:44 Blood Pressure 128/82 12/06/24 18:44 Pulse Oximetry 100 12/06/24 18:44 Temperature 36.3 C L 12/06/24 18:44 Pulse Rate 60 12/06/24 21:09 Respiratory Rate 18 12/06/24 21:09 Blood Pressure 109/73 12/06/24 21:09 Pulse Oximetry 100 12/06/24 21:09 MDM - Abdominal Pain MDM Narrative Medical decision making narrative: 24-year-old otherwise healthy female presenting to the emergency room with right lower quadrant and generalized abdominal pain. States that it started 5 days ago. She went to another hospital and had extensive workup including CT, labs and ultrasound. Diagnosed with ruptured ovarian cyst. Came to the ER today as she was concerned that it could be her appendix. No nausea, vomiting, diarrhea. She has a soft nondistended abdomen but minimally tender in the right lower quadrant, no overlying skin discoloration or hernias. She has normal vital signs and is afebrile. Differential includes appendicitis, gastroenteritis, diverticulitis, Crohn's disease, possible ovarian pathology although less likely. She denies any urinary complaints denies any chance of . Laboratory studies were drawn, CT scan with abdomen pelvis protocol and contrast obtained. She politely declined any analgesia medications at this time. No leukocytosis or anemia. Normal platelet count. Electrolytes are unremarkable. Normal creatinine, normal glucose and LFTs. Normal lipase. Urinalysis without signs of infection or blood. Negative test. CT of the abdomen pelvis shows no acute abnormality. No appendicitis, diverticulitis or obstruction. There is some constipation is seen which is likely causing her abdominal pain. Pelvic organs are unremarkable the bladder is under filled there is an IUD in the uterus. Patient re-evaluated and not in any distress or pain and she has normal vital signs. She is safe and stable for discharge home at this time. Medical Records Attestation: I reviewed the patient's medical records. Lab Data Attestation: I reviewed the patient's lab results. 12/06/24 19:17 12/06/24 19:17 Labs: Lab Results 12/06/24 12/06/24 Range/Units 19:17 19:23 WBC 8.9 (4.5-10.0) K/mm3 RBC 4.10 L (4.2-5.4) M/mm3 Hgb 12.2 (12.0-15.0) g/dL Hct 37.9 (37.0-47.0) % MCV 92.4 (80-100) fl MCH 29.8 (26-34) pg MCHC 32.2 (32-36) g/dl RDW 12.8 (11.5-14.5) % Plt Count 262 (150-375) k/mm3 MPV 9.4 (7.4-10.4) fl Immature Gran % (Auto) Not Reportable Neut % (Auto) Not Reportable Lymph % (Auto) Not Reportable [place] % (Auto) Not Reportable Eos % (Auto) Not Reportable Baso % (Auto) Not Reportable Lymph # (Auto) Not Reportable [place] # (Auto) Not Reportable Eos # (Auto) Not Reportable Baso # (Auto) Not Reportable Abs Immat Gran (auto) Not Reportable Absolute Neuts (auto) Not Reportable Absolute Nucleated RBC Not Reportable Total Counted 100 Neutrophils % (Manual) 33 L (46-73) % Band Neutrophils % 1 (0-6) % Lymphocytes % (Manual) 37 (18-44) % Monocytes % (Manual) 9 (3-9) % Eosinophils % (Manual) 20 H (0-4) % Basophils % (Manual) 0 (0-1) % Nucleated RBC % Not Reportable Abs Neuts (Manual) 3.02 (1.7-7.2) K/mm3 Abs Lymphs (Manual) 3.29 (1.1-4.5) K/mm3 Abs Monocytes (Manual) 0.80 (0.1-0.90) K/mm3 Absolute Eos (Manual) 1.78 H (0.02-0.50) K/mm3 Abs Basophils (Manual) 0.00 (0.0-0.1) K/mm3 Platelet Estimate Adequate (Adequate) Hypochromasia 1+ Schistocytes None seen Sodium 138 (137-145) mmol/L Potassium 3.9 (3.4-5.0) mmol/L Chloride 102 (98-107) mmol/L Carbon Dioxide 28 (22-30) mmol/L Anion Gap 8 (4-12) mmol/L BUN 14 (7-17) mg/dL Creatinine 0.63 L (0.7-1.0) mg/dL Estim Creat Clear Calc 102 ml/min Estimated GFR > 60 (59 - ) Glucose 89 (65-110) mg/dL Calcium 9.0 (8.4-10.2) mg/dL Total Bilirubin 1.2 (0.2-1.3) mg/dL AST 26 (14-36) U/L ALT 15 (6-35) U/L Alkaline Phosphatase 50 (38-126) U/L Total Protein 7.0 (6.3-8.2) g/dL Albumin 4.3 (3.5-5.1) g/dL Lipase 100 (23-300) U/L Urine Color Yellow (Yellow) Urine Appearance Clear (Clear) Urine pH 6.5 (5.0-9.0) Ur Specific [place] 1.011 (1.001-1.035) Urine Protein Negative (Negative) mg/dL Urine Glucose (UA) Negative (Negative) mg/dL Urine Ketones Negative (Negative) mg/dL Ur Blood (Man) Negative (Negative) Urine Nitrate Negative (Negative) Urine Bilirubin Negative (Negative) Urine Urobilinogen 1.0 (<2.0) mg/dL Leukocyte Esterase Rfl Negative (Negative) COLLEEN/UL POC Urine HCG, Qual Negative (Negative) Imaging Data Attestation: I personally reviewed and interpreted this imaging study as follows: My impression: Impressions Abdomen/Pelvis CT 12/06/24 20:10 IMPRESSION: 1. No evidence of appendicitis, diverticulitis or intestinal obstruction. 2. Constipation. Radiologist's impression: ITS Impressions Abdomen/Pelvis CT 12/06/24 20:10 IMPRESSION: 1. No evidence of appendicitis, diverticulitis or intestinal obstruction. 2. Constipation. Discharge Plan Discharge Clinical Impression: Bilateral lower abdominal pain Patient Disposition: Home Condition: Stable Instructions: Antibiotic Form, Abdominal Pain (ED) Additional Instructions: Your CT scan shows no evidence of appendicitis, no intra-abdominal or pelvic process, there is evidence of constipation which is likely contributing to your symptoms. Your laboratory studies are all normal and you have normal kidney, liver, pancreas and electrolytes. Follow-up with your regular primary care provider. Return with any new or worsening concerns at any time. We will send you home with some symptom control medications to try. Patient Language: Khmer Prescriptions: New dicyclomine 20 mg tablet 20 mg PO TID PRN (Reason: abdominal pain) Qty: 14 0RF magnesium citrate Solution 300 ml PO DAILY PRN (Reason: constipation) Qty: 296 0RF No Action metronidazole 500 mg tablet 500 mg PO Q12H 7 Days Qty: 14 0RF Follow-up/Referrals: Elmer,Idalia Mackenzie, [employer] [Primary Care Provider] - Time of Disposition: 21:13
[2024-12-06 19:53] LABS: Band Neutrophils Percent 1 % (0-6); Basophils Percent Manual 0 % (0-1); Eosinophils Absolute Manual 1.78 K/mm3 (0.02-0.50); Eosinophils Percent Manual 20 % (0-4); Lymphocytes Absolute Manual 3.29 K/mm3 (1.1-4.5); Lymphocytes Percent Manual 37 % (18-44); Monocytes Percent Manual 9 % (3-9); Neutrophils Absolute Manual 3.02 K/mm3 (1.7-7.2); Neutrophils Percent Manual 33 % (46-73); Total Cells Counted 100
[2024-12-06 19:54] LABS: Hypochromasia 1+; Platelet Estimate Adequate (Adequate)
[2024-12-06 19:55] LABS: Schistocytes None Seen
--- NOTE | 2024-12-06 19:58 | PC.NURSE ---
24yo F to ER c/o worsening, constant generalized severe abdominal pain. Pt reports bloating and swelling that extends into her legs. Patient with multiple ER visits since symptoms started approx 1 month ago. +N/V. Pt started pepcid and diphenhydramine without improvement of sxs. Seen by PMD and scheduled f/u with GI. Pain is now constant and cannot wait for GI f/u. Denies chance of . Pt is tearful. PIV and blood work obtained, sent to lab. UA sent to lab as well. Pt placed on continuous nibp and pulse ox monitor, VS as charted. Pt aware of plan of care. Call light in reach.
[2024-12-06 20:01] VITALS: BP 114/74; PULSE 77; RESP 18; O2SAT 100
[2024-12-06 21:09] VITALS: BP 109/73; PULSE 60; RESP 18; O2SAT 100
== END 2024-12-06 21:25 | disposition home or self-care (01) ==
PROVIDERS: Emergency Provider Student in an Organized Health Care Education/Training Program
DX: R10.31 Right lower quadrant pain (principal); R10.32 Left lower quadrant pain
CPT/HCPCS: 36415; 74177; 80053; 81003; 81025; 83690; 85025; 99284; Q9967